=== PATIENT | male | born 1955 | race Caucasian/White ===

== ENCOUNTER 2017-09-08 17:49 | Emergency (ER) | payer BC ==
[~2017-09-08] VITALS: Ht 188 cm; Wt 79.5 kg
[~2017-09-08 17:49] MED LIST: ALPR.25 PO; ATEN-100 PO; AZIT250T74 PO; CEFU1TAB43 PO; THIA100T PO
[2017-09-08 17:51] VITALS: BP 142/82; PULSE 111; RESP 16; TEMP 97.6; O2SAT 97
[2017-09-08 18:18] LABS: AUTOMATED NEUTROPHIL # 9.2 TH/MM3 (1.8-7.7); BASOPHIL # 0.1 TH/MM3 (0-0.2); BASOPHIL % 0.6 % (0.0-2.0); EOSINOPHIL # 0.1 TH/MM3 (0-0.4); EOSINOPHIL % 1.2 % (0.0-4.0); HEMATOCRIT 37.7 % (39.0-51.0); LYMPH % 11.4 % (9.0-44.0); LYMPHOCYTE # 1.4 TH/MM3 (1.0-4.8); MEAN CORPUSCULAR HEMOGLOBIN 33.5 PG (27.0-34.0); MEAN CORPUSCULAR HGB CONC 34.5 % (32.0-36.0); MONO % 11.3 % (0.0-8.0); MONOCYTE # 1.4 TH/MM3 (0-0.9); NEUT % 75.5 % (16.0-70.0); PLATELET COUNT 336 TH/MM3 (150-450); RED BLOOD COUNT 3.89 MIL/MM3 (4.50-5.90); RED CELL DISTRIBUTION WIDTH 16.8 % (11.6-17.2); WHITE BLOOD COUNT 12.2 TH/MM3 (4.0-11.0)
[2017-09-08 18:24] LABS: INTERNATIONAL NORMALIZED RATIO 1.1 RATIO; PROTHROMBIN TIME - PATIENT 10.8 SEC (9.8-11.6)
[2017-09-08 18:31] LABS: BICARBONATE 28.1 MEQ/L (21.0-32.0); BLOOD UREA NITROGEN 10 MG/DL (7-18); CALCIUM 8.9 MG/DL (8.5-10.1); CHLORIDE 100 MEQ/L (98-107); CREATININE 0.67 MG/DL (0.60-1.30); GLOMERULAR FILTRATION RATE 120 ML/MIN (>89); GLUCOSE,RANDOM 95 MG/DL (74-106); MAGNESIUM 1.6 MG/DL (1.5-2.5); SODIUM (NA) 133 MEQ/L (136-145)
[2017-09-08 18:35] LABS: TROPONIN I LESS THAN 0.02 NG/ML (0.02-0.05)
--- NOTE | 2017-09-08 19:23 | RADRPT ---
EXAM DATE/TIME: 09/08/2017 18:20 [facility] COMPARISON: No previous studies available for comparison. INDICATIONS : Chest pain and shortness of breath. MEDICAL HISTORY : Aortic aneurysm. SURGICAL HISTORY : None. ENCOUNTER: Initial ACUITY: 2 days PAIN SCORE: 3/10 LOCATION: Left chest FINDINGS: PA and lateral views of the chest demonstrate the lungs to be symmetrically aerated without evidence of mass, infiltrate or effusion. The cardiomediastinal contours are unremarkable. Mild degenerative changes in the thoracic spine. CONCLUSION: The lungs are clear. Oral Mack MD on September 08, 2017 at 19:21 Board Certified Radiologist. This report was verified electronically.
--- NOTE | 2017-09-08 21:37 | PD ---
HPI Chief Complaint: Chest Pain Time Seen by Provider: 20:10 Travel History International Travel<30 days: No Contact w/Intl Traveler<30days: No Traveled to known affect area: No History of Present Illness HPI This is a 62-year-old male with a history of thoracic aneurysm, presents here today with complaints of left shoulder and arm pain. Patient also reports pain radiates across his upper anterior chest. The patient reports it as a pulling type of pain. He reports it hurts when he moves his arm. He reports it hurts when he touches his upper back and shoulder. He states he woke up with it at 5: 30 this morning. He states that he was sleeping on his left shoulder/side. The patient states he called his primary doctor who told him to come to the hospital for evaluation. The patient denies any dizziness. He denies any shortness of breath. There is no other complaints time my examination. It is important noted patient is adamant about leaving. I informed him that we would need to complete the workup. He is status several times and he does not wish to be admitted. [facility]LY [facility] Past Medical History Anxiety: Yes Cardiovascular Problems: Yes (aneurysm) Diminished Hearing: No Genitourinary: No Hypertension: Yes Musculoskeletal: No Neurologic: Yes Respiratory: No Past Surgical History Genitourinary Surgery: Yes (inginal hernia repair) Social History Alcohol Use: Yes (2 beers/fam indicates more) Tobacco Use: Yes (1ppk) Allergies-Medications (Allergen,Severity, Reaction): Coded Allergies: chloral hydrate (Unverified Allergy, Unknown, 05/06/17) Reported Meds & Prescriptions Reported Meds & Active Scripts Active Flexeril (Cyclobenzaprine HCl) 5 Mg Tab 5 Mg PO TID Arthrotec 50 (Diclofenac-Misoprostol) 50-0.2 Mg Tab 1 Tab PO TID Zithromax (Azithromycin) 250 Mg Tab 250 Mg PO DAILY Ceftin 500 Mg Tab (Cefuroxime Axetil) 500 Mg Tab 500 Mg PO BID Thiamine HCl 100 Mg Tab 100 Mg PO DAILY Reported Xanax 0.25 Mg (Alprazolam) 0.25 Mg Tab 0.25 Mg PO BID Atenolol 25 Mg Tab Unknown Dose PO DAILY Review of Systems Except as stated in HPI: all other systems reviewed are Neg General / Constitutional: No: Fever, Chills HENT: Positive: Neck Pain (pain on the left lateral neck and shoulder), No: Headaches, Lightheadedness Cardiovascular: Positive: Chest Pain or Discomfort (from the arm and left posterior back to the shoulder.), No: Palpitations Respiratory: No: Cough, Shortness of Breath Gastrointestinal: No: Nausea, Vomiting, Abdominal Pain Musculoskeletal: Positive: Limited ROM (secondary to pain), Pain (left arm and posterior back/shoulder), No: Weakness Neurologic: No: Weakness, Dizziness, Headache, Sensory Disturbance Physical Exam Narrative GENERAL: Well blood well-nourished male, in no acute respiratory distress. SKIN: Focused skin assessment warm/dry. HEAD: Atraumatic. Normocephalic. EYES: No scleral icterus. No injection or drainage. ENT: No nasal bleeding or discharge. Mucous membranes pink and moist. NECK: Trachea midline. Supple. CARDIOVASCULAR: Regular rate and rhythm. No murmur appreciated. RESPIRATORY: No accessory muscle use. Clear to auscultation. Breath sounds equal bilaterally. GASTROINTESTINAL: Abdomen soft, non-tender, nondistended. Hepatic and splenic margins not palpable. MUSCULOSKELETAL: No obvious deformities. No clubbing. No cyanosis. No edema. On examination patient's area is left upper extremity he has point tenderness in his left deltoid and left trapezius muscle. It is point tender and he reports this is the pain that he's feeling. It is also reproducible in his left upper chest muscle wall. NEUROLOGICAL: Awake and alert. No obvious cranial nerve deficits. Motor grossly within normal limits. Normal speech. Data Data Last Documented VS Vital Signs Date Time Temp Pulse Resp B/P (MAP) Pulse Ox O2 Delivery O2 Flow Rate FiO2 09/08/17 17:51 97.6 111 16 142/82 (102) 97 Orders Orders Electrocardiogram (09/08/17 18:00) Basic Metabolic Panel (Bmp) (09/08/17 18:00) Ckmb (Isoenzyme) Profile (09/08/17 18:00) Complete Blood Count With Diff (09/08/17 18:00) Magnesium (Mg) (09/08/17 18:00) Prothrombin Time / Inr (Pt) (09/08/17 18:00) Act Partial Throm Time (Ptt) (09/08/17 18:00) Troponin I (09/08/17 18:00) Chest, Pa & Lat (09/08/17 ) Cta Thor Abd Aorta W Iv C W3d (09/08/17 ) Labs Laboratory Tests Test 09/08/17 18:05 White Blood Count 12.2 TH/MM3 Red Blood Count 3.89 MIL/MM3 Hemoglobin 13.0 GM/DL Hematocrit 37.7 % Mean Corpuscular Volume 97.0 FL Mean Corpuscular Hemoglobin 33.5 PG Mean Corpuscular Hemoglobin Concent 34.5 % Red Cell Distribution Width 16.8 % Platelet Count 336 TH/MM3 Mean Platelet Volume 7.0 FL Neutrophils (%) (Auto) 75.5 % Lymphocytes (%) (Auto) 11.4 % Monocytes (%) (Auto) 11.3 % Eosinophils (%) (Auto) 1.2 % Basophils (%) (Auto) 0.6 % Neutrophils # (Auto) 9.2 TH/MM3 Lymphocytes # (Auto) 1.4 TH/MM3 Monocytes # (Auto) 1.4 TH/MM3 Eosinophils # (Auto) 0.1 TH/MM3 Basophils # (Auto) 0.1 TH/MM3 CBC Comment DIFF FINAL Differential Comment Prothrombin Time 10.8 SEC Prothromb Time International Ratio 1.1 RATIO Activated Partial Thromboplast Time 28.9 SEC Blood Urea Nitrogen 10 MG/DL Creatinine 0.67 MG/DL Random Glucose 95 MG/DL Calcium Level 8.9 MG/DL Magnesium Level 1.6 MG/DL Sodium Level 133 MEQ/L Potassium Level 4.0 MEQ/L Chloride Level 100 MEQ/L Carbon Dioxide Level 28.1 MEQ/L Anion Gap 5 MEQ/L Estimat Glomerular Filtration Rate 120 ML/MIN Total Creatine Kinase 40 U/L Troponin I LESS THAN 0.02 NG/ML MDM Medical Decision Making Medical Screen Exam Complete: Yes Emergency Medical Condition: Yes Differential Diagnosis Musca skeletal pain versus ACS versus leaking thoracic aorta Narrative Course 62-year-old gentleman with history of thoracic aortic aneurysm, presents today with complaints of left sided upper back pain with radiation to his right shoulder and upper left chest. The patient called his primary physician who told him to come to the ER for evaluation. The patient has producible pain. It involves his shoulder and upper back muscles. There is also left lateral upper pectoralis muscle involvement. The patient states he was leaning on his shoulder when he woke up this morning with the pain is reproducible with movement and touch. EKG shows no evidence of acute ST elevation or depression. Cardiac enzymes are negative. Chest x-ray shows no evidence of acute process. CT scan of the thoracic aorta shows no evidence of dissection. There is a 4.7 cm aneurysm without evidence of dissection. I have offered the patient admission to the chest pain center. The patient is adamant that he does not wish to be admitted to the hospital. We discussed the risk benefits of being admitted. He states he does not feel this is his heart and does not wish to be admitted to the hospital. Given his reproducible pain, negative cardiac enzymes, and no evidence of dissection on thoracic aorta, I'm comfortable discharging him with muscle relaxer and pain medication. He is instructed to follow up with his primary care physician tomorrow. Diagnosis Primary Impression: Atypical chest pain Additional Impressions: Thoracic aortic aneurysm left upper back musculoskeletal pain Additional Instructions: Follow up with your primary care physician. Call tomorrow for an appointment. Med/Other Pt SpecificInfo: Prescription(s) given Scripts Cyclobenzaprine (Flexeril) 5 Mg Tab 5 MG PO TID for Muscle Spasm, #15 TAB 0 Refills Prov: Armand Smith MD 09/08/17 Diclofenac-Misoprostol (Arthrotec 50) 50-0.2 Mg Tab 1 TAB PO TID for Pain Management, #15 TAB 0 Refills Prov: Armand Smith MD 09/08/17 Disposition: 01 DISCHARGE HOME Condition: Stable Armand Smith MD Sep 08, 2017 21:37
[2017-09-08] MEDS ORDERED: IOHEXOL 350 MG/ML 10 ML VIAL (for RAD DIAG) IVCONTRAST ONE (22:30)
--- NOTE | 2017-09-08 23:38 | RADRPT ---
EXAM DATE/TIME: 09/08/2017 22:43 [facility] COMPARISON: No previous studies available for comparison. INDICATIONS : Back pain. IV CONTRAST: 100 cc Omnipaque 350 (iohexol) IV RADIATION DOSE: 7.0 CTDIvol (mGy) MEDICAL HISTORY : Hypertension. Cardiovascular disease SURGICAL HISTORY : None. ENCOUNTER: Initial ACUITY: 1 day PAIN SCALE: 8/10 LOCATION: Bilateral chest TECHNIQUE: Volumetric scanning was performed using a multi-row detector CT scanner. The data was post processed with a variety of visualization algorithms including full volume maximum intensity projection, multi -planar sliding thin slab reformation, curved planar reformation, and surface rendering techniques. Using automated exposure control and adjustment of the mA and/or kV according to patient size, radiat ion dose was kept as low as reasonably achievable to obtain optimal diagnostic quality images. DICOM format image data is available electronically for review and comparison. FINDINGS: LUNGS: There is mild emphysematous change in the upper lungs. There is minimal suspected atelectasis at the left base. MEDIASTINUM: No abnormally enlarged lymph nodes by CT criteria. No axillary or hilar abnormalities are identified. ABDOMEN: The liver and spleen are free of focal defects. The gallbladder and pancreas demonstrate no abnormali ty. The adrenal glands are normal. The kidneys demonstrate no evidence of solid renal mass or hydrone phrosis. No free fluid or abdominal masses are identified. No para-aortic adenopathy is seen. There i s degenerative change in the lumbar spine. PELVIS: No evidence of free fluid or pelvic mass. No abnormally enlarged inguinal or retroperitoneal lymph no gustavo are present. The bladder is unremarkable. THORACIC AORTA: There is aneurysmal dilatation of the ascending thoracic aorta measuring 4.7 cm. There are mild calci fications of the aorta. ABDOMINAL AORTA: The aorta is normal in caliber without aneurysm or dissection. The renal arteries are patent bilater ally. The proximal celiac and superior mesenteric arteries are patent and normal in diameter. Mild a therosclerotic calcifications are seen. PELVIC VESSELS: The internal iliac and external iliac vessels are patent without aneurysm or stenosis. There is a mil d focal stenosis at the proximal right external iliac artery. CONCLUSION: 1. No dissection is seen. 2. Aneurysmal dilatation of the ascending thoracic aorta measuring 4.7 cm. 3. Emphysematous change in the upper lungs. 4. Degenerative change in the spine. Rupert Chaudhry MD on September 08, 2017 at 23:30 Board Certified Radiologist. This report was verified electronically.
[2017-09-08] MEDS ORDERED: ARTHTAB2 PO (23:49)
[2017-09-08] MEDS ORDERED: CYCL5TAB PO (23:49)
--- NOTE | 2017-09-09 12:41 | EKG ---
Date Performed: 09/08/2017 Time Performed: 18:05:33 PTAGE: 62 years EKG: Sinus rhythm POSSIBLE LEFT ATRIAL ENLARGEMENT POSSIBLE RIGHT VENTRICULAR CONDUCTION DELAY POSSIBLE LEFT VENTRICUL AR HYPERTROPHY ABNORMAL ECG PREVIOUS TRACING : 11/13/1994 09.53 Since previous tracing, no significant change noted DOCTOR: Milan Link Interpretating Date/Time 09/09/2017 12:40:02
== END 2017-09-09 00:05 | disposition home or self-care (01) ==
LOC: NEPE 17:49
DX: R07.89 Other chest pain (principal); M79.1 Myalgia; M25.512 Pain in left shoulder; I71.2 Thoracic aortic aneurysm, without rupture; I10 Essential (primary) hypertension; F17.200 Nicotine dependence, unspecified, uncomplicated
CPT/HCPCS: 71020; 71275; 74174; 80048; 82550; 83735; 84484; 85025; 85610; 85730; 93005; 99285; Q9967

== ENCOUNTER 2018-05-09 00:14 | Inpatient (IN) ==
--- NOTE | 2018-05-09 00:57 | ED ---
HPI General Chief complaint: Psychiatric Symptoms Stated complaint: psych eval Time Seen by Provider: 05/09/18 00:42 Limitations: altered mental status History of Present Illness HPI narrative: Patient presents to the emergency department for altered mental status. He is a patient at [facility] alcohol abuse and was found disoriented, not knowing where he was. Unable to get history from patient secondary to altered mental status. Patient has been placed under Philip act prior to ER arrival. Related Data Home Medications Medication Instructions Recorded Confirmed clonidine 05/09/18 Allergies Allergy/AdvReac Type Severity Reaction Status Date / Time chloral hydrate Allergy Unknown Unverified 05/06/17 15:15 Review of Systems ROS Unobtainable ROS Unobtainable: unobtainable due to mental status [facility] Medical History Medical History HTN (hypertension) (Acute) Hepatitis C (Acute) Social History Social History Second Hand Smoke Exposure: Yes Smoking Status: Current every day smoker Tobacco Type: Cigarettes How Often Do You Have a Drink Containing Alcohol: 4 or more times a week Recent Travel in [facility] within the Last 8 Weeks: No Recent Out of Country Travel within the Last 8 Weeks: No Substance Abuse Detail Marijuana: Substance Use Status: Active Route Used Substance Abuse: Inhalation Reason for Use: Feels Good Immunization History Tetanus Immunization: Unsure Hx Influenza Vaccine This Season: No Exam Narrative Exam Narrative: GENERAL: No acute distress. SKIN: Focused skin assessment warm/dry. HEAD: Atraumatic. Normocephalic. EYES: Pupils equal and round. No scleral icterus. No injection or drainage. ENT: No nasal bleeding or discharge. Mucous membranes pink and moist. NECK: Trachea midline. No JVD. CARDIOVASCULAR: Regular rate and rhythm. No murmur appreciated. RESPIRATORY: No accessory muscle use. Clear to auscultation. Breath sounds equal bilaterally. GASTROINTESTINAL: Abdomen soft, non-tender, nondistended. Hepatic and splenic margins not palpable. MUSCULOSKELETAL: No obvious deformities. No clubbing. No cyanosis. No edema. NEUROLOGICAL: Awake and alert. No obvious cranial nerve deficits. Motor grossly within normal limits. Normal speech. PSYCHIATRIC: Altered. In restraints. Course Initial Documented Vital Signs Temperature 99 F 05/09/18 00:25 Pulse Rate 95 H 05/09/18 00:25 Respiratory Rate 18 05/09/18 00:25 Blood Pressure 168/81 H 05/09/18 00:25 Pulse Oximetry 99 05/09/18 00:25 Last Documented Vital Signs Temperature 99 F 05/09/18 00:25 Pulse Rate 95 H 05/09/18 00:25 Respiratory Rate 18 05/09/18 00:25 Blood Pressure 168/81 H 05/09/18 00:25 Pulse Oximetry 99 05/09/18 00:25 Critical Care Time Critical Care Time: Yes Total Critical Care Time: 30 Attestation: Aggregate critical care time was 30 minutes. Time to perform other separately billable procedures was not included in the critical care time. My time did not include minutes spent treating any other patients simultaneously or on activities that did not directly contribute to the patient's treatment. The services I provided to this patient were to treat and/or prevent clinically significant deterioration that could result in: , increased morbidity I provided critical care services requiring my management, as noted below: Chart data review, documentation time, medication orders and management, vital sign assessments/reviewing monitor data, ordering and reviewing lab tests, ordering and interpreting/reviewing x-rays and diagnostic studies, care of the patient and discussion of the patient with the admitting physicians. Medical Decision Making MDM Narrative Medical decision making narrative: Patient presents to the emergency department altered mental status. Patient placed on cementer oil well, continuous pulse ox, IV access obtained. Head CT, chest x-ray, EKG, labs and psych screen ordered. Patient given 1mg IV ativan for DTs. Head CT and CXR-negative Labs: low calcium, elevated craetinine, low PLT, decrease hgb/hct, elevated ck, glc, creatinine, BUN, AST. Given 1gram IV calcium, 2 grams IV magnesium, 1L IV NS. Medical Screen Exam Complete: Yes Emergency Medical Condition: Yes Differential Diagnosis Differential Diagnosis: Alcohol/drug intoxication, DTs, infection Lab Data Result diagrams: 05/09/18 01:07 05/09/18 01:07 Lab Results 05/09/18 05/09/18 05/09/18 Range/Units 01:07 01:07 01:07 WBC 7.7 (4.0-11.0) th/mm3 RBC 3.43 L (4.50-5.90) mil/mm3 Hgb 11.4 L (13.0-17.0) gm/dL Hct 32.9 L (39.0-51.0) % MCV 96.0 (80.0-100.0) fL MCH 33.2 (27.0-34.0) pg MCHC 34.6 (32.0-36.0) % RDW 15.0 (11.6-17.2) % Plt Count 70 L (150-450) th/mm3 MPV 9.8 (7.0-11.0) fL Prelim Diff (Auto) Slide review pending Neut % (Auto) 71.5 H (16.0-70.0) % Lymph % (Auto) 11.4 (9.0-44.0) % [place] % (Auto) 16.0 H (0.0-8.0) % Eos % (Auto) 0.8 (0.0-4.0) % Baso % (Auto) 0.3 (0.0-2.0) % Neut # (Auto) 5.5 (1.8-7.7) th/mm3 Lymph # (Auto) 0.9 L (1.0-4.8) th/mm3 [place] # (Auto) 1.2 H (0.0-0.9) th/mm3 Eos # (Auto) 0.1 (0.0-0.4) th/mm3 Baso # (Auto) 0.0 (0.0-0.2) th/mm3 Differential Comment . PT 10.9 (9.8-11.6) sec INR 1.1 Ratio APTT 28.3 (24.3-30.1) sec Sodium 136 (136-145) meq/L Potassium 3.8 (3.5-5.1) meq/L Chloride 100 (98-107) meq/L Carbon Dioxide 29.7 (21.0-32.0) meq/L Anion Gap 6 (5-15) meq/L BUN 35 H (7-18) mg/dL Creatinine 1.56 H (0.60-1.30) mg/dL Estimated GFR 45 L (>89) mL/min Random Glucose 121 H (74-106) mg/dL Calcium 6.8 L* (8.5-10.1) mg/dL Prot Corrected Calcium 7.1 L* (8.5-10.1) mg/dL Total Bilirubin 0.5 (0.2-1.0) mg/dL AST 53 H (15-37) U/L ALT 28 (12-78) U/L Alkaline Phosphatase 66 (45-117) U/L Ammonia (11-32) mcmol/L Total Creatine Kinase 571 H (39-308) U/L CK-MB (CK-2) 7.4 H (0.5-3.6) ng/mL CK-MB (CK-2) % 1.3 (0.0-4.0) % Troponin I Less than 0.02 L (0.02-0.05) ng/mL Total Protein 6.5 (6.4-8.2) g/dL Albumin 2.9 L (3.4-5.0) g/dL TSH 1.390 (0.358-3.740) uIU/mL Free T4 0.82 (0.76-1.46) ng/dL Salicylates (2.8-20.0) mg/dL Acetaminophen Less than 2.0 L (10.0-30.0) mcg/mL Serum Alcohol Less than 3 (0-5) mg/dL 05/09/18 05/09/18 Range/Units 01:07 01:07 WBC (4.0-11.0) th/mm3 RBC (4.50-5.90) mil/mm3 Hgb (13.0-17.0) gm/dL Hct (39.0-51.0) % MCV (80.0-100.0) fL MCH (27.0-34.0) pg MCHC (32.0-36.0) % RDW (11.6-17.2) % Plt Count (150-450) th/mm3 MPV (7.0-11.0) fL Prelim Diff (Auto) Neut % (Auto) (16.0-70.0) % Lymph % (Auto) (9.0-44.0) % [place] % (Auto) (0.0-8.0) % Eos % (Auto) (0.0-4.0) % Baso % (Auto) (0.0-2.0) % Neut # (Auto) (1.8-7.7) th/mm3 Lymph # (Auto) (1.0-4.8) th/mm3 [place] # (Auto) (0.0-0.9) th/mm3 Eos # (Auto) (0.0-0.4) th/mm3 Baso # (Auto) (0.0-0.2) th/mm3 Differential Comment PT (9.8-11.6) sec INR Ratio APTT (24.3-30.1) sec Sodium (136-145) meq/L Potassium (3.5-5.1) meq/L Chloride (98-107) meq/L Carbon Dioxide (21.0-32.0) meq/L Anion Gap (5-15) meq/L BUN (7-18) mg/dL Creatinine (0.60-1.30) mg/dL Estimated GFR (>89) mL/min Random Glucose (74-106) mg/dL Calcium (8.5-10.1) mg/dL Prot Corrected Calcium (8.5-10.1) mg/dL Total Bilirubin (0.2-1.0) mg/dL AST (15-37) U/L ALT (12-78) U/L Alkaline Phosphatase (45-117) U/L Ammonia 18 (11-32) mcmol/L Total Creatine Kinase (39-308) U/L CK-MB (CK-2) (0.5-3.6) ng/mL CK-MB (CK-2) % (0.0-4.0) % Troponin I (0.02-0.05) ng/mL Total Protein (6.4-8.2) g/dL Albumin (3.4-5.0) g/dL TSH (0.358-3.740) uIU/mL Free T4 (0.76-1.46) ng/dL Salicylates 6.2 (2.8-20.0) mg/dL Acetaminophen (10.0-30.0) mcg/mL Serum Alcohol (0-5) mg/dL Imaging Data Radiologist's impression: Chest X-Ray 05/09/18 00:50 CONCLUSION: No acute abnormality is seen. Head CT 05/09/18 00:50 CONCLUSION: 1. No acute abnormality is seen. 2. Atrophy. . ECG Data Attestation: I personally reviewed and interpreted this ECG as follows: (SR, rate 90, QTc 434, LAE, TWI in V2) Discharge Plan Discharge Disposition Patient Disposition: 30 Still Patient Discharge Condition Condition: Stable Discharge Details Diagnosis: Alcohol withdrawal, Hypocalcemia Physicians Team ED Provider: Ayaka Perez Primary Care Provider: UNKNOWN, Rxs /Orders / Referrals /Forms Prescriptions: No Action clonidine RF: 0 Status ED Status: Admitted Patient
--- NOTE | 2018-05-09 01:27 | XR ---
EXAM DATE: 05/09/2018 1:23 AM EDT AGE/SEX: 63 years / Male INDICATIONS: Chest pain. CLINICAL DATA: This is the patient's initial encounter. Patient reports that signs and symptoms have been present for 1 day and indicates a pain score of 4/10. MEDICAL/SURGICAL HISTORY: None. None. COMPARISON: No prior exams available for comparison. FINDINGS: A single AP view of the chest demonstrates the lungs to be symmetrically aerated without evidence of mass, infiltrate or effusion. The cardiomediastinal contours are unremarkable. There is degenerative change in the thoracic spine. CONCLUSION: No acute abnormality is seen. Electronically signed by: Rupert Chaudhry MD 05/09/2018 1:26 AM EDT
[2018-05-09 01:43] LABS: Baso % (Auto) 0.3 % (0.0-2.0); Eos # (Auto) 0.1 th/mm3 (0.0-0.4); Eos % (Auto) 0.8 % (0.0-4.0); Hematocrit 32.9 % (39.0-51.0); Hemoglobin 11.4 gm/dL (13.0-17.0); Lymph # (Auto) 0.9 th/mm3 (1.0-4.8); Lymph % (Auto) 11.4 % (9.0-44.0); Mean Corpuscular HGB Conc 34.6 % (32.0-36.0); Mean Corpuscular Hemoglobin 33.2 pg (27.0-34.0); Mean Platelet Volume 9.8 fL (7.0-11.0); Mono # (Auto) 1.2 th/mm3 (0.0-0.9); Neut # (Auto) 5.5 th/mm3 (1.8-7.7); Neut % (Auto) 71.5 % (16.0-70.0); Platelet Count 70 th/mm3 (150-450); Red Blood Count 3.43 mil/mm3 (4.50-5.90); White Blood Count 7.7 th/mm3 (4.0-11.0)
[2018-05-09 01:58] LABS: Activated Partial Thrombo Time 28.3 sec (24.3-30.1); INR 1.1 Ratio; Prothrombin Time 10.9 sec (9.8-11.6)
[2018-05-09 02:09] LABS: Alanine Aminotransferase 28 U/L (12-78); Albumin 2.9 g/dL (3.4-5.0); Alkaline Phosphatase 66 U/L (45-117); Anion Gap 6 meq/L (5-15); Aspartate Aminotransferase 53 U/L (15-37); Blood Urea Nitrogen 35 mg/dL (7-18); Calcium 6.8 mg/dL (8.5-10.1); Carbon Dioxide 29.7 meq/L (21.0-32.0); Chloride 100 meq/L (98-107); Creatine Kinase 571 U/L (39-308); Free T4 (Free Thyroxine) 0.82 ng/dL (0.76-1.46); Glomerular Filtration Rate 45 mL/min (>89); Glucose,Random 121 mg/dL (74-106); Potassium 3.8 meq/L (3.5-5.1); Sodium 136 meq/L (136-145); Total Protein 6.5 g/dL (6.4-8.2)
[2018-05-09 02:26] LABS: CKMB Percent 1.3 % (0.0-4.0); Creatine Kinase MB 7.4 ng/mL (0.5-3.6)
--- NOTE | 2018-05-09 02:37 | CT ---
EXAM DATE: 05/09/2018 2:31 AM EDT AGE/SEX: 63 years / Male INDICATIONS: Altered mental status; uncooperative. CLINICAL DATA: This is the patient's initial encounter. Patient reports that signs and symptoms have been present for 1 day and indicates a pain score of Nonresponsive. MEDICAL/SURGICAL HISTORY: Non-responsive. Non-responsive. RADIATION DOSE: 56.35 CTDI (mGy) COMPARISON: No prior exams available for comparison. TECHNIQUE: CT of the head without contrast. Using automated exposure control and adjustment of the mA and/or kV according to patient size, radiation dose was kept as low as reasonably achievable to ob tain optimal diagnostic quality images. DICOM format image data is available electronically for revi ew and comparison. FINDINGS: Cerebrum: The ventricles and cortical sulci are widened. No evidence of midline shift, mass lesion, hemorrhage or acute infarction. No extraaxial fluid collections are seen. Posterior Fossa: The cerebellum and brainstem are intact. The 4th ventricle is midline. The cerebe llopontine angle is unremarkable. Extracranial: The visualized portion of the orbits is intact. Skull: The calvaria is intact. No evidence of skull fracture. CONCLUSION: 1. No acute abnormality is seen. 2. Atrophy. . Electronically signed by: Rupert Chaudhry MD 05/09/2018 2:36 AM EDT
[2018-05-09] MEDS ORDERED: Calcium Gluconate Inj 1 GM in Dextrose 5% in Water Inj 100 ML IV.SIG ONE ×2 (02:52)
[2018-05-09] MEDS ORDERED: Magnesium Sulfate Inj 2 GM in Sodium Chlor 0.9% Inj 96 ML IV.SIG ONE (02:52)
[2018-05-09] MEDS ORDERED: Sod Chloride 0.9% Inj 1,000 ML IV.SIG ONE (02:54)
[2018-05-09] MEDS ORDERED: Bisacodyl 10 MG Supp RECTAL PRN (03:10)
[2018-05-09 03:42] LABS: Platelet Morphology Normal (Normal)
[2018-05-09] MEDS ORDERED: Calcium Chloride Inj 0.33 GM in Dextrose 5% in Water Inj 100 ML IV.SIG ONE ×2 (03:45)
--- NOTE | 2018-05-09 04:38 | P.HPIM ---
History of Present Illness Primary Care Physician: UNKNOWN History of Present Illness: This is a 63-year-old male with a PMH of Hepatitis C, HTN and Alcohol Abuse was transferred from [facility] for [facility]. Unable to obtain any history from patient due to mental status. On arrival, patient significantly combative requiring restraints, in obvious withdrawal. BP 168/81, HR 95, O2 sat 99% on RA , Temp 99. WBC normal. Platelets 70, previously 336 on 09/08/2017. INR 1.1. Creatinine 1.56, previously 0.67 on 09/08/2017. Calcium 6.8. CPK 571. Troponin negative. Tylenol negative, alcohol negative. CT Head with no acute findings. CXR normal. - Diagnosis (1) Alcohol withdrawal (2) NIKUNJ (acute kidney injury) (3) Hypocalcemia Inpatient Certification: I certify that the inpatient services were ordered in accordance with Medicare regulations governing the order. This includes certification that hospital inpatient services are reasonable and necessary and in the case of services not specified as inpatient-only under 42 CFR 419.22(n), that they are appropriately provided as inpatient services in accordance to with the 2-midnight benchmark under 43 CFR 412.3(e) Estimated Total Length of Stay (Days): 2 Plans for Post Hospital Care: Not yet determined Review of Systems PAST FAMILY HISTORY: Unable to obtain unobtainable due to mental status PMFSH - History History Provided By: Patient - Medical History Medical History: Medical History (Last Updated 05/09/18 @ 00:30 by Antonio Crowder) HTN (hypertension) Hepatitis C - Tobacco History Second Hand Smoke Exposure: Yes Tobacco Use In Past 30 Days: Yes Smoking Status: Current every day smoker Tobacco Type: Cigarettes - Alcohol History How Often Do You Have a Drink Containing Alcohol: 4 or more times a week - Substance Use Type Marijuana Status: Active Route Used: Inhalation Reason for Use: Feels Good - Travel History Recent Travel in the USA Within the Last 8 Weeks: No Recent Travel Out of the Country Within the Last 8 Weeks: No - Immunization History Tetanus Immunization: Unsure Hx Influenza Vaccine This Season: No Medications and Allergies Active Medications: Active Medications Al Hydroxide/Mg Hydroxide (Milk Of Magnesia Liq) 30 ml PO Q12H PRN PRN Reason: Mild Constipation Bisacodyl (Dulcolax Supp) 10 mg RECTAL DAILY PRN PRN Reason: SEVERE CONSITIPATION Clonidine HCl (Catapres) 0.1 mg PO Q8HR SUSAN Flumazenil (Romazecon Inj) 0.2 mg IV.PUSH Q1M PRN PRN Reason: OVERSEDATION Haloperidol Lactate (Haldol Inj) 1 mg IV.PUSH Q15M PRN PRN Reason: for severe agitation Magnesium Sulfate Inj 2 gm/ (Sodium Chloride) 100 mls @ 50 mls/hr IV.SIG ONCE ONE Stop: 05/09/18 04:51 Last Admin: 05/09/18 03:56 Dose: 50 mls/hr Multivitamins 10 ml/ Folic (Acid 1 mg/ Sodium Chloride) 510.2 mls @ 125 mls/hr IV.SIG DAILY SUSAN Stop: 05/14/18 08:59 Sodium Chloride (Ns Inj) 1,000 mls @ 100 mls/hr IV.CONT .Q10H SUSAN Calcium Chloride 0.33 gm/ (Dextrose) 103.3 mls @ 110 mls/hr IV.SIG ONCE ONE Stop: 05/09/18 04:41 Lactulose (Lactulose Liq) 30 ml PO DAILY PRN PRN Reason: SEVERE CONSITIPATION Lorazepam (Ativan) 1 mg PO Q4H PRN PRN Reason: for CIWA 8-10 Lorazepam (Ativan) 2 mg PO Q2H PRN PRN Reason: for CIWA 11-14 Lorazepam (Ativan Inj) 2 mg IV.PUSH Q1H PRN PRN Reason: for CIWA 15-20 Lorazepam (Ativan Inj) 2 mg IV.PUSH Q15M PRN PRN Reason: for CIWA > 20 Lorazepam (Ativan Inj) 1 mg IV.PUSH Q4H PRN PRN Reason: for CIWA 8-10 Lorazepam (Ativan Inj) 2 mg IV.PUSH Q2H PRN PRN Reason: for CIWA 11-14 Ondansetron HCl (Zofran Inj) 4 mg IV.PUSH Q6H PRN PRN Reason: NAUSEA OR VOMITING Senna/Docusate Sodium (Kaitlynn-Colace) 1 tab PO BID [facility] Sennosides (Senokot) 17.2 mg PO Q12H PRN PRN Reason: Moderate Constipation Thiamine HCl (Vitamin B1) 100 mg PO DAILY [facility] Allergies Allergy/AdvReac Type Severity Reaction Status Date / Time chloral hydrate Allergy Unknown Unverified 05/06/17 15:15 Home Medications Medication Instructions Recorded Confirmed Type clonidine 05/09/18 History Exam Vital signs: Vital Signs 05/09/18 00:25 Temperature 99 F Pulse Rate 95 H Respiratory Rate 18 Blood Pressure 168/81 H Pulse Oximetry 99 Intake & Output 05/08/18 05/08/18 05/09/18 06:59 18:59 06:59 Weight 90.718 kg Narrative: PE: GENERAL: Middle-aged white male tremulous, agitated, in restraints, talking to himself HEENT: PERRLA, EOMI. No scleral icterus or conjunctival pallor. No lid lag or facial droop. CARDIOVASCULAR: Regular rate and rhythm. No obvious murmurs to auscultation. No chest tenderness to palpation. RESPIRATORY: No obvious rhonchi or wheezing. Clear to auscultation. Breath sounds equal bilaterally. GASTROINTESTINAL: Abdomen soft, non-tender, nondistended. BS normal. MUSCULOSKELETAL: Extremities without clubbing, cyanosis, or edema. No obvious deformities. NEUROLOGICAL: Awake, agitated, not following commands. No focal neurologic deficits. Moving both upper and lower extremities spontaneously. Results - Labs CBC & Chem 7: 05/09/18 01:07 05/09/18 01:07 Labs: Short CBC 05/09/18 Range/Units 01:07 WBC 7.7 (4.0-11.0) th/mm3 Hgb 11.4 L (13.0-17.0) gm/dL Hct 32.9 L (39.0-51.0) % Plt Count 70 L (150-450) th/mm3 BMP 05/09/18 01:07 Sodium 136 Potassium 3.8 Chloride 100 Carbon Dioxide 29.7 BUN 35 H Creatinine 1.56 H Calcium 6.8 L* Cardiac Enzymes 05/09/18 Range/Units 01:07 Total Creatine Kinase 571 H (39-308) U/L CK-MB (CK-2) 7.4 H (0.5-3.6) ng/mL Troponin I Less than 0.02 L (0.02-0.05) ng/mL Liver Function 05/09/18 Range/Units 01:07 Total Bilirubin 0.5 (0.2-1.0) mg/dL AST 53 H (15-37) U/L ALT 28 (12-78) U/L Alkaline Phosphatase 66 (45-117) U/L Albumin 2.9 L (3.4-5.0) g/dL - Imaging Impressions Chest X-Ray 05/09/18 00:50 CONCLUSION: No acute abnormality is seen. Head CT 05/09/18 00:50 CONCLUSION: 1. No acute abnormality is seen. 2. Atrophy. . Caprini VTE Risk Assessment Caprini VTE Risk Assessment: No/Low Risk (score <= 1) Caprini Risk Assessment Model: Point Value = 1 Point Value = 2 Point Value = 3 Point Value = 5 Age 41-60 Minor surgery BMI > 25 kg/m2 Swollen legs Varicose veins or History of unexplained or recurrent spontaneous Oral contraceptives or hormone replacement Sepsis (< 1 month) Serious lung disease, including pneumonia (< 1 month) Abnormal pulmonary function Acute myocardial infarction Congestive heart failure (< 1 month) History of inflammatory bowel disease Medical patient at bed rest Age 61-74 Arthroscopic surgery Major open surgery (> 45 min) Laparoscopic surgery (> 45 min) Malignancy Confined to bed (> 72 hours) Immobilizing plaster cast Central venous access Age >= 75 History of VTE Family history of VTE Factor V Leiden Prothrombin [id number] Lupus anticoagulant Anticardiolipin antibodies Elevated serum homocysteine Heparin-induced thrombocytopenia Other congenital or acquired thrombophilia Stroke (< 1 month) Elective arthroplasty Hip, pelvis, or leg fracture Acute spinal cord injury (< 1 month) Prophylaxis Regimen: Total Risk Factor Score Risk Level Prophylaxis Regimen 0-1 Low Early ambulation 2 Moderate Order ONE of the following: *Sequential Compression Device (SCD) *Heparin 5000 units SQ BID 3-4 Higher Order ONE of the following medications: *Heparin 5000 units SQ TID *Enoxaparin/Lovenox 40 mg SQ daily (WT < 150 kg, CrCl > 30 mL/min) *Enoxaparin/Lovenox 30 mg SQ daily (WT < 150 kg, CrCl > 10-29 mL/min) *Enoxaparin/Lovenox 30 mg SQ BID (WT < 150 kg, CrCl > 30 mL/min) AND/OR *Sequential Compression Device (SCD) 5 or more Highest Order ONE of the following medications: *Heparin 5000 units SQ TID (Preferred with Epidurals) *Enoxaparin/Lovenox 40 mg SQ daily (WT < 150 kg, CrCl > 30 mL/min) *Enoxaparin/Lovenox 30 mg SQ daily (WT < 150 kg, CrCl > 10-29 mL/min) *Enoxaparin/Lovenox 30 mg SQ BID (WT < 150 kg, CrCl > 30 mL/min) AND *Sequential Compression Device (SCD) Assessment and Plan - Assessment (1) Alcohol withdrawal Code(s): F10.239 - Alcohol dependence with withdrawal, unspecified Status: Acute (2) NIKUNJ (acute kidney injury) Code(s): N17.9 - Acute kidney failure, unspecified Status: Acute (3) Hypocalcemia Code(s): E83.51 - Hypocalcemia Status: Acute - Plan A/P: 1. Alcohol Withdrawal: h/o Alcohol Abuse, tx from [facility] for acute AMS, sent w/ Philip Act, +active withdrawal. Admit to telemetry, CIWA, Seizure Precautions, MVT/Thiamine/Folate replacement, monitor closely for worsening withdrawal. Consult Psych for further eval. 2. Hypocalcemia: Ca 6.8, s/p replacement, will recheck and replace as needed. 3. NIKUNJ: Creatinine 1.56, previously 0.67 on 09/08/17, IVF for hydration, repeat labs in am. Check U/a and UDS. 4. DVT Prophylaxis: SCD/Teds 5. Social work for d/c planning as needed 6. Case discussed w/ ER physician at length, labs/records/imaging reviewed by me. (1) Alcohol withdrawal Qualifiers: Complication of substance-induced condition: with delirium Qualified Code(s) : F10.231 - Alcohol dependence with withdrawal delirium
[2018-05-09 06:11] LABS: Amphetamine Screen,Urine Neg (Neg); Barbiturate Screen,Urine Neg (Neg); Cannabinoid Screen,Urine Neg (Neg); Cocaine Screen,Urine Neg (Neg)
[2018-05-09 06:14] LABS: Opiate Screen,Urine Neg (Neg)
[2018-05-09 06:29] LABS: Amorphous Sediment,Urine Moderate /hpf; Bacteria,Urine Rare /hpf; Bilirubin,Urine Negative (Negative); Clarity,Urine Hazy (Clear); Color,Urine Yellow (Yellw/Straw); Glucose,Urine (UA) Negative (Negative); Hyaline Casts,Urine 3 /lpf (0-3); Leukocyte Esterase,Urine Negative (Negative); Nitrite,Urine Negative (Negative); Specific Gravity,Urine 1.011 (1.002-1.035)
[2018-05-09] MEDS: Sod Chloride 0.9% Inj 1,000 ML IV.CONT SCH ×2 (06:59→15:49)
--- NOTE | 2018-05-09 09:11 | P.CONPSY ---
Provisional Diagnosis Admission Date: May 09, 2018 02:59 [place] I.: Alcoholic delirium History of Present Illness Service: Psychiatry Consult date: 05/09/18 Requesting Physician: Rimma Jerome Reason for Consult: Philip act assessment Primary Care Provider: UNKNOWN Family Provider: UNKNOWN History of Present Illness: Patient is a 63-year-old white male was transferred here under Philip act from [facility]. He be correct dated 05/08/2018 and 11:30 AM that likely reviewed that stating rule out psychotic disorder rule out alcohol use disorder stating patient presents to us oriented does not know where she is patient reported he thought he was at a garage patient reported he was trying to put his clothes on but only blankets patient repeated he did not remember being arrested yesterday patient was asked for the lived and he reported he lived [place] patient is observed to be unable to care for himself this is signed by Zahida Chavez LUNCH COOK it appears the patient was just released from long-term prior for DUI was sent to [facility] and then referred here under the Philip act. Upon review of the EMR there is no past psychiatric history with this gentleman patient was discussed with nurse. Patient is now under the cind protocol. Patient is laying in bed somewhat disheveled white male in soft 4 point restraints he is alert diffusely confused and confabulating is markedly disorganized. Mood was denied suicidality for several versions. When asked about past psychiatric history he remains markedly confused when asked about his alcohol use he says he was a teenager when he started drinking beer. He denies prior detox acknowledges rehab please also come out diffusely confabulating attitude. At this time if patient does not meet Philip criteria for illnesses alcohol-related alcohol delirium with perhaps withdrawal issues. She is about 72 hours out from his last drink. The central left Philip act. I would suggest that the patient is medically stable perhaps a referral back to store more traumatic for further detox and/or rehab. I have no significant suggestions for treatment may be determined by the medical admitting team. At this time I will look to be correct and I will sign off on this patient thank you for the consult Review of Systems Please see med surge assessment PMFSH - History History Provided By: Patient - Medical History Medical History: Medical History (Last Updated 05/09/18 @ 00:30 by Antonio Crowder) HTN (hypertension) Hepatitis C - Tobacco History Second Hand Smoke Exposure: Yes Tobacco Use In Past 30 Days: Yes Smoking Status: Current every day smoker Tobacco Type: Cigarettes - Alcohol History How Often Do You Have a Drink Containing Alcohol: 4 or more times a week - Substance Use Type Marijuana Status: Active Route Used: Inhalation Reason for Use: Feels Good - Travel History Recent Travel in the [place] Within the Last 8 Weeks: No Recent Travel Out of the Country Within the Last 8 Weeks: No - Immunization History Tetanus Immunization: Unsure Hx Influenza Vaccine This Season: No Medications and Allergies Active Medications: Active Medications Al Hydroxide/Mg Hydroxide (Milk Of Magnesia Liq) 30 ml PO Q12H PRN PRN Reason: Mild Constipation Bisacodyl (Dulcolax Supp) 10 mg RECTAL DAILY PRN PRN Reason: SEVERE CONSITIPATION Clonidine HCl (Catapres) 0.1 mg PO Q8HR SUSAN Flumazenil (Romazecon Inj) 0.2 mg IV.PUSH Q1M PRN PRN Reason: OVERSEDATION Haloperidol Lactate (Haldol Inj) 1 mg IV.PUSH Q15M PRN PRN Reason: for severe agitation Multivitamins 10 ml/ Folic (Acid 1 mg/ Sodium Chloride) 510.2 mls @ 125 mls/hr IV.SIG DAILY SUSAN Stop: 05/14/18 08:59 Sodium Chloride (Ns Inj) 1,000 mls @ 100 mls/hr IV.CONT .Q10H SUSAN Last Admin: 05/09/18 06:59 Dose: 100 mls/hr Lactulose (Lactulose Liq) 30 ml PO DAILY PRN PRN Reason: SEVERE CONSITIPATION Lorazepam (Ativan) 1 mg PO Q4H PRN PRN Reason: for CIWA 8-10 Lorazepam (Ativan) 2 mg PO Q2H PRN PRN Reason: for CIWA 11-14 Lorazepam (Ativan Inj) 2 mg IV.PUSH Q1H PRN PRN Reason: for CIWA 15-20 Last Admin: 05/09/18 05:52 Dose: 2 mg Lorazepam (Ativan Inj) 2 mg IV.PUSH Q15M PRN PRN Reason: for CIWA > 20 Lorazepam (Ativan Inj) 1 mg IV.PUSH Q4H PRN PRN Reason: for CIWA 8-10 Last Admin: 05/09/18 08:15 Dose: 1 mg Lorazepam (Ativan Inj) 2 mg IV.PUSH Q2H PRN PRN Reason: for CIWA 11-14 Ondansetron HCl (Zofran Inj) 4 mg IV.PUSH Q6H PRN PRN Reason: NAUSEA OR VOMITING Senna/Docusate Sodium (Kaitlynn-Colace) 1 tab PO BID SUSAN Sennosides (Senokot) 17.2 mg PO Q12H PRN PRN Reason: Moderate Constipation Thiamine HCl (Vitamin B1) 100 mg PO DAILY SUSAN Allergies Allergy/AdvReac Type Severity Reaction Status Date / Time chloral hydrate Allergy Unknown Unverified 05/06/17 15:15 Home Medications Medication Instructions Recorded Confirmed Type clonidine 05/09/18 History Exam Vital signs: Vital Signs 05/09/18 00:25 05/09/18 03:08 05/09/18 05:10 Temperature 99 F Pulse Rate 95 H 97 H 97 H Respiratory Rate 18 20 20 Blood Pressure 168/81 H 139/92 H 139/92 H Pulse Oximetry 99 99 99 05/09/18 08:38 Temperature Pulse Rate 75 Respiratory Rate 20 Blood Pressure 158/77 H Pulse Oximetry 100 Intake & Output 05/08/18 05/09/18 05/09/18 18:59 06:59 18:59 Weight 90.718 kg Narrative: Please see [facility] assessment Mental Status Examination Appearance: Disheveled Consciousness: Alert Motor Activity: Other (Patient in 4 point restraints) Speech: Hesitant, Incoherent Language: Other (Markedly disorganized) Fund of Knowledge: Poor Attention and Concentration: Inadequate Memory: Impaired Mood: Irritable Affect: Other (Slight increased range and intensity) Thought Process & Associations: Loose associations, Disorganized Thought Content: Other (Markedly disorganized) Hallucination Type: None (Denies) Delusion Type: Bizarre Suicidal Ideation: No Suicidal Plan: No Suicidal Intention: No Homicidal Ideation: No Homicidal Plan: No Homicidal Intention: No Insight: Poor Judgment: Poor Assessment and Plan - Assessment (1) Alcoholic delirium Code(s): F10.231 - Alcohol dependence with withdrawal delirium Status: Acute - Plan Plan: Estimated LOS: [] days Patient remains delirious confabulating quite confused. Her feel this is related to his alcohol misuse. Patient does not meet Tamera act criteria with Tamera act. Recommend once he is stabilized contact Mr. Singh act to they be willing to accept him back through detox. Program. Otherwise would just suggest continuing the same course for treatment of delirium of the alcohol- related issues. Thanks for the consult will sign off at the present time Justification for Continued Inpatient Stay: Please see med [facility] assessments Discharge Planning: Per MedSurg assessment
[2018-05-09] MEDS: Haloperidol Inj 5 MG/ML Ampul IV.PUSH PRN ×2 (10:07→19:08)
[2018-05-09] MEDS: Senna/Docusate Sodium 8.6/50 MG Tablet PO SCH ×2 (14:42→22:07)
[2018-05-09] MEDS: Multivitamin Inj 10 ML, Folic Acid Inj 1 MG in Sodium Chlor 0.9% Inj 500 ML IV.SIG SCH (15:16)
--- NOTE | 2018-05-09 19:31 | ECG ---
Date Performed: 05/09/2018 Time Performed: 02:58:26 PTAGE: 63 years EKG: ATRIAL ABNORMALITY SLIGHT RIGHT VENTRICULAR CONDUCTION DELAY. SINCE PREVIOUS TRACING 2016, NO SIGNIFICANT CHANGE. ABNORMAL ECG PREVIOUS TRACING : 09/08/2017 18.05 DOCTOR: Romie Boswell Interpretating Date/Time 05/09/2018 19:29:14
[2018-05-10] MEDS: Haloperidol Inj 5 MG/ML Ampul IV.PUSH PRN ×6 (01:06→21:23)
[2018-05-10] MEDS: Sod Chloride 0.9% Inj 1,000 ML IV.CONT SCH ×2 (02:13→13:14)
[2018-05-10] MEDS ORDERED: Chlorhexidine Gluconate 2% 1 Pack (2 Cloths) TOPICAL PRN (04:00)
[2018-05-10] MEDS: Chlorhexidine Gluconate 2% 1 Pack (2 Cloths) TOPICAL SCH (04:02)
[2018-05-10 04:24] LABS: Baso % (Auto) 0.2 % (0.0-2.0); Eos % (Auto) 0.5 % (0.0-4.0); Hematocrit 35.5 % (39.0-51.0); Hemoglobin 12.2 gm/dL (13.0-17.0); Lymph # (Auto) 0.7 th/mm3 (1.0-4.8); Lymph % (Auto) 8.2 % (9.0-44.0); Mean Corpuscular HGB Conc 34.3 % (32.0-36.0); Mean Corpuscular Hemoglobin 33.4 pg (27.0-34.0); Mean Corpuscular Volume 97.3 fL (80.0-100.0); Mean Platelet Volume 9.6 fL (7.0-11.0); Mono # (Auto) 1.3 th/mm3 (0.0-0.9); Mono % (Auto) 14.1 % (0.0-8.0); Neut # (Auto) 6.9 th/mm3 (1.8-7.7); Platelet Count 91 th/mm3 (150-450); Red Blood Count 3.64 mil/mm3 (4.50-5.90); Red Cell Distribution Width 15.1 % (11.6-17.2)
[2018-05-10 04:41] LABS: Alanine Aminotransferase 28 U/L (12-78); Albumin 2.7 g/dL (3.4-5.0); Alkaline Phosphatase 63 U/L (45-117); Anion Gap 15 meq/L (5-15); Aspartate Aminotransferase 70 U/L (15-37); Blood Urea Nitrogen 15 mg/dL (7-18); Carbon Dioxide 21.1 meq/L (21.0-32.0); Chloride 105 meq/L (98-107); Glomerular Filtration Rate Greater Than 89 mL/min (>89); Glucose,Random 83 mg/dL (74-106); Potassium 3.4 meq/L (3.5-5.1); Sodium 141 meq/L (136-145); Total Protein 6.4 g/dL (6.4-8.2)
[2018-05-10 05:37] LABS: Platelet Morphology Normal (Normal)
--- NOTE | 2018-05-10 08:55 | P.PNIM ---
Subjective Interval history: " I am tired, In [place], somewhere around [address] [place]" Physical Exam Vital signs: Vital Signs 05/09/18 12:30 05/09/18 14:43 05/09/18 18:00 Temperature Pulse Rate 72 62 77 Respiratory Rate 18 Blood Pressure 142/67 H 156/70 H Pulse Oximetry 99 05/09/18 18:12 05/09/18 18:15 05/09/18 18:41 Temperature 98.4 F Pulse Rate 78 77 77 Respiratory Rate 20 22 Blood Pressure 143/65 H 181/79 H Pulse Oximetry 94 L 05/09/18 19:53 05/10/18 00:00 05/10/18 04:00 Temperature 97.9 F 98.7 F 97.6 F Pulse Rate 73 70 78 Respiratory Rate 17 16 19 Blood Pressure 157/97 H 168/88 H 158/78 H Pulse Oximetry 99 97 98 Intake & Output 05/09/18 05/10/18 05/10/18 18:59 06:59 18:59 Intake Total 1949 1510.2 / 1510.2 Balance 1949 1510.2 / 1510.2 Weight 72.5 kg Intake: IV 1000 / 1000 1510.2 / 1510.2 NS Inj 1,000 ML @ 100 mls/hr IV 1000 / 1000 1000 / 1000 .CONT .Q10H SUSAN Rx#:[id number] MVI-12 Inj 10 ML Folvite Inj 1 510.2 / 510.2 MG In NS Inj 500 ML @ 125 mls/ hr IV.SIG DAILY SUSAN Rx#: [id number] Oral 200 / 200 Trauma Intake Amount 750 / 750 Other: # Incontinent Voids 3 # Urine Diapers 3 Narrative: GENERAL: Disheveled male, confused. CARDIOVASCULAR: Normal rate and regular rhythm without murmurs, gallops, or rubs. RESPIRATORY: Breath sounds equal and clear to auscultation bilaterally. GASTROINTESTINAL: Abdomen soft, non-tender, non-distended. Normal active bowel sounds MUSCULOSKELETAL: Extremities without cyanosis, or edema. NEURO: Confused and easily agitated. Moves all ext x4 Results - Labs CBC & Chem 7: 05/10/18 03:31 05/10/18 03:31 Laboratory Results - last 24 hr 05/09/18 05/09/18 05/09/18 12:39 18:10 21:46 WBC RBC Hgb Hct MCV MCH MCHC RDW Plt Count MPV Prelim Diff (Auto) Neut % (Auto) Lymph % (Auto) [place] % (Auto) Eos % (Auto) Baso % (Auto) Neut # (Auto) Lymph # (Auto) [place] # (Auto) Eos # (Auto) Baso # (Auto) WBC Differential Diff Scan Differential Comment Platelet Estimate Platelet Morphology Sodium Potassium Chloride Carbon Dioxide Anion Gap BUN Creatinine Estimated GFR POC Glucose 98 105 Random Glucose Calcium Prot Corrected Calcium Total Bilirubin AST ALT Alkaline Phosphatase Total Protein Albumin Nasal Screen MRSA (PCR) Not detected 05/10/18 05/10/18 03:31 03:31 WBC 9.0 RBC 3.64 L Hgb 12.2 L Hct 35.5 L MCV 97.3 MCH 33.4 MCHC 34.3 RDW 15.1 Plt Count 91 L MPV 9.6 Prelim Diff (Auto) Slide review pending Neut % (Auto) 77.0 H Lymph % (Auto) 8.2 L [place] % (Auto) 14.1 H Eos % (Auto) 0.5 Baso % (Auto) 0.2 Neut # (Auto) 6.9 Lymph # (Auto) 0.7 L [place] # (Auto) 1.3 H Eos # (Auto) 0.0 Baso # (Auto) 0.0 WBC Differential . Diff Scan Auto diff confirmed Differential Comment . Platelet Estimate Low L Platelet Morphology Normal Sodium 141 Potassium 3.4 L Chloride 105 Carbon Dioxide 21.1 Anion Gap 15 BUN 15 Creatinine 0.67 Estimated GFR Greater than 89 POC Glucose Random Glucose 83 Calcium 7.0 L* Prot Corrected Calcium 7.4 L* Total Bilirubin 0.7 AST 70 H ALT 28 Alkaline Phosphatase 63 Total Protein 6.4 Albumin 2.7 L Nasal Screen MRSA (PCR) Assessment and Plan - Assessment (1) Alcohol withdrawal Code(s): F10.239 - Alcohol dependence with withdrawal, unspecified Status: Acute (2) NIKUNJ (acute kidney injury) Code(s): N17.9 - Acute kidney failure, unspecified Status: Acute (3) Hypocalcemia Code(s): E83.51 - Hypocalcemia Status: Acute - Plan 63-year-old male admitted with alcohol withdrawal, early DTs. Alcohol withdrawal, early DTs: Still very confused and agitated. - Continue CIWA protocol. - Continue scheduled Librium - Supportive care with IV fluid - Frequent redirection. Patient was sent from [facility]. He was seen by psychiatry. Recommendation to discharge to [facility] when ready. Acute kidney injury: Secondary to dehydration. Resolved with IV fluid. Hypokalemia/hypomagnesemia: - Replace and monitor Hypertension: Accelerated due to withdrawal. - Continue clonidine. DVT PPx: SCDs (1) Alcohol withdrawal Qualifiers: Complication of substance-induced condition: with delirium Qualified Code(s) : F10.231 - Alcohol dependence with withdrawal delirium
[2018-05-10] MEDS ORDERED: Calcium Chloride Inj 1 GM in Dextrose 5% in Water Inj 100 ML IV.SIG ONE ×2 (10:00)
[2018-05-10] MEDS: Senna/Docusate Sodium 8.6/50 MG Tablet PO SCH ×2 (10:01→20:07)
[2018-05-10] MEDS: Multivitamin Inj 10 ML, Folic Acid Inj 1 MG in Sodium Chlor 0.9% Inj 500 ML IV.SIG SCH (10:19)
[2018-05-10] MEDS: Mag Sulf 1 gm/100 ml Premix 100 ML IV.SIG SCH ×2 (17:59→20:07)
[2018-05-11] MEDS: Haloperidol Inj 5 MG/ML Ampul IV.PUSH PRN ×4 (00:41→21:56)
[2018-05-11] MEDS: Sod Chloride 0.9% Inj 1,000 ML IV.CONT SCH ×3 (01:44→18:31)
[2018-05-11] MEDS: chlordiazePOXIDE 25 MG Capsule PO SCH ×3 (03:26→17:01)
[2018-05-11 05:23] LABS: Hematocrit 36.2 % (39.0-51.0); Hemoglobin 12.2 gm/dL (13.0-17.0); Mean Corpuscular HGB Conc 33.6 % (32.0-36.0); Mean Corpuscular Hemoglobin 33.3 pg (27.0-34.0); Mean Corpuscular Volume 99.1 fL (80.0-100.0); Platelet Count 131 th/mm3 (150-450); Red Blood Count 3.65 mil/mm3 (4.50-5.90); Red Cell Distribution Width 14.8 % (11.6-17.2); White Blood Count 10.5 th/mm3 (4.0-11.0)
[2018-05-11 05:35] LABS: Anion Gap 11 meq/L (5-15); Blood Urea Nitrogen 7 mg/dL (7-18); Calcium 7.5 mg/dL (8.5-10.1); Carbon Dioxide 23.6 meq/L (21.0-32.0); Chloride 106 meq/L (98-107); Glomerular Filtration Rate Greater Than 89 mL/min (>89); Glucose,Random 99 mg/dL (74-106); Magnesium 1.1 mg/dL (1.5-2.5); Potassium 3.1 meq/L (3.5-5.1); Sodium 141 meq/L (136-145)
[2018-05-11] MEDS: Chlorhexidine Gluconate 2% 1 Pack (2 Cloths) TOPICAL SCH (07:42)
[2018-05-11] MEDS: Multivitamin Inj 10 ML, Folic Acid Inj 1 MG in Sodium Chlor 0.9% Inj 500 ML IV.SIG SCH (09:44)
[2018-05-11] MEDS: Senna/Docusate Sodium 8.6/50 MG Tablet PO SCH ×2 (09:48→21:54)
--- NOTE | 2018-05-11 10:46 | P.PN ---
Subjective Interval history: This is a pleasant 63 y/o male with Hepatitis C, Hypertension, Alcohol abuse, was transferred from [facility] for AMS, combative on admission, obvious withdrawal, Hypertensive, Thrombocytopenic 70, Acute kidney injury Creatinine 1.56, Hypocalcemia, CT Head with no acute findings. CXR normal. 05/11: Seen in intensive Care unit, patient continue Lethargic, awake but does not follow commands continue intensive care management has electrolyte derangement replacing and following, continue supportive care. no nausea, vomit or diarrhea. Physical Exam Vital signs: Vital Signs 05/10/18 11:20 05/10/18 12:00 05/10/18 12:01 Temperature 98.0 F Pulse Rate 68 65 Respiratory Rate 24 27 H Blood Pressure 186/99 H 152/78 H 152/78 H Pulse Oximetry 92 L 97 05/10/18 13:00 05/10/18 13:01 05/10/18 14:00 Temperature Pulse Rate 69 55 L 66 Respiratory Rate 22 15 10 L Blood Pressure 176/87 H 153/90 H Pulse Oximetry 97 99 97 05/10/18 15:00 05/10/18 15:01 05/10/18 16:00 Temperature 98.2 F Pulse Rate 71 60 63 Respiratory Rate 17 14 15 Blood Pressure 173/88 H 203/98 H Pulse Oximetry 99 99 98 05/10/18 17:00 05/10/18 17:01 05/10/18 18:00 Temperature Pulse Rate 102 H 108 H 61 Respiratory Rate 24 25 H 16 Blood Pressure 143/80 H Pulse Oximetry 97 97 96 05/10/18 18:01 05/10/18 18:08 05/10/18 19:00 Temperature Pulse Rate 77 68 93 H Respiratory Rate 20 17 29 H Blood Pressure 203/94 H 156/79 H Pulse Oximetry 95 96 97 05/10/18 19:01 05/10/18 20:00 05/10/18 21:00 Temperature 98.0 F Pulse Rate 103 H 85 97 H Respiratory Rate 21 18 20 Blood Pressure 159/113 H 183/87 H 154/85 H Pulse Oximetry 98 97 98 05/10/18 22:00 05/10/18 23:00 05/10/18 23:01 Temperature Pulse Rate 111 H 101 H Respiratory Rate 36 H 24 Blood Pressure 185/97 H 166/87 H Pulse Oximetry 100 97 100 05/11/18 00:00 05/11/18 00:01 05/11/18 00:18 Temperature Pulse Rate 110 H 97 H Respiratory Rate 30 H 39 H 26 H Blood Pressure 184/91 H 158/90 H Pulse Oximetry 79 L 05/11/18 01:00 05/11/18 01:01 05/11/18 01:29 Temperature Pulse Rate 122 H 124 H Respiratory Rate 18 5 L Blood Pressure 150/105 H 181/93 H Pulse Oximetry 100 100 05/11/18 01:39 05/11/18 02:00 05/11/18 02:01 Temperature Pulse Rate 182 H Respiratory Rate 28 H 18 18 Blood Pressure 177/87 H 156/90 H Pulse Oximetry 100 100 100 05/11/18 03:00 05/11/18 03:01 05/11/18 03:28 Temperature Pulse Rate 105 H 85 Respiratory Rate 20 35 H 18 Blood Pressure 190/92 H 165/88 H Pulse Oximetry 99 99 98 05/11/18 04:00 05/11/18 04:35 05/11/18 05:00 Temperature 98.1 F Pulse Rate 166 H Respiratory Rate 21 16 16 Blood Pressure 170/89 H 160/94 H 157/93 H Pulse Oximetry 98 98 99 Intake & Output 05/10/18 05/11/18 05/11/18 18:59 06:59 18:59 Intake Total 1100 / 1100 60 / 60 Balance 1100 / 1100 60 / 60 Weight 74 kg Intake: IV 1100 / 1100 NS Inj 1,000 ML @ 100 mls/hr IV 1000 / 1000 .CONT .Q10H SUSAN Rx#:[id number] Calcium Chloride Inj 1 GM In 0 / 0 D5W Inj 100 ML @ 110 mls/hr IV. SIG ONCE ONE Rx#:[id number] Magnesium Sulfate 1 gm/D5W 100 100 / 100 ml Premix 100 ML @ 100 mls/hr IV.SIG Q1H SUSAN Rx#:[id number] Oral 60 / 60 Other: # Incontinent Voids 3 Date of Last Bowel Movement 05/09/18 05/11/18 Narrative: GENERAL: Disheveled male, lethargic. CARDIOVASCULAR: Normal rate and regular rhythm without murmurs, gallops, or rubs. tachycardia RESPIRATORY: Breath sounds equal and clear to auscultation bilaterally. GASTROINTESTINAL: Abdomen soft, non-tender, non-distended. Normal active bowel sounds MUSCULOSKELETAL: Extremities without cyanosis, or edema. NEURO: Confused and easily agitated. Moves all ext x4 Results - Labs CBC & Chem 7: 05/11/18 04:10 05/11/18 04:10 Laboratory Results - last 24 hr 05/10/18 05/10/18 05/10/18 11:00 13:13 18:10 WBC RBC Hgb Hct MCV MCH MCHC RDW Plt Count MPV Sodium Potassium Chloride Carbon Dioxide Anion Gap BUN Creatinine Estimated GFR POC Glucose 113 H 137 H 128 H Random Glucose Calcium Magnesium 05/11/18 05/11/18 04:10 04:10 WBC 10.5 RBC 3.65 L Hgb 12.2 L Hct 36.2 L MCV 99.1 MCH 33.3 MCHC 33.6 RDW 14.8 Plt Count 131 L D MPV 9.0 Sodium 141 Potassium 3.1 L Chloride 106 Carbon Dioxide 23.6 Anion Gap 11 BUN 7 Creatinine 0.60 Estimated GFR Greater than 89 POC Glucose Random Glucose 99 Calcium 7.5 L Magnesium 1.1 L Microbiology 05/09/18 05:55 Catheterized Urine Urine Culture - Final No growth in 48 hours - Imaging Chest X-Ray 05/09/18 00:50 CONCLUSION: No acute abnormality is seen. Head CT 05/09/18 00:50 CONCLUSION: 1. No acute abnormality is seen. 2. Atrophy. Assessment and Plan - Assessment (1) Alcohol withdrawal Code(s): F10.239 - Alcohol dependence with withdrawal, unspecified Status: Acute (2) NIKUNJ (acute kidney injury) Code(s): N17.9 - Acute kidney failure, unspecified Status: Acute (3) Hypocalcemia Code(s): E83.51 - Hypocalcemia Status: Acute - Plan 1. Alcohol Withdrawal: h/o Alcohol Abuse, tx from [facility] for acute AMS, sent w/ Philip Act, +active withdrawal. at this time in intensive Care Unit, CIWA protocol, Seizure Precautions, MVT /Thiamine/Folate replacement. 2. Electrolyte derangement, had Calcium replacement, Potassium 3.1 replaced, magnesium 1.1 replaced following asked for laboratory at 1600 hours today and in am tomorrow at 0600 hours. 3. NIKUNJ Improved. marketing planning manager PT evaluation Psychiatric evaluation DVT Prophylaxis: SCD/Teds Code Status: Full code Discussed Condition With: Nurse, patient Lethargic unable to participate. Discharge Planning: Expected in the next 2 days. (1) Alcohol withdrawal Qualifiers: Complication of substance-induced condition: with delirium Qualified Code(s) : F10.231 - Alcohol dependence with withdrawal delirium
[2018-05-11] MEDS ORDERED: Magnesium Sulfate Inj 2 GM in Sodium Chlor 0.9% Inj 96 ML IV.SIG ONE (12:00)
[2018-05-11] MEDS: POTASSIUM CHLORIDE IV.SIG SCH ×4 (12:09→15:57)
[2018-05-11] MEDS: guaiFENesin 600 MG ER Tablet PO SCH ×2 (12:09→21:53)
[2018-05-11] MEDS ORDERED: hydrALAZINE HCl Inj 20 MG/ML Vial IV.PUSH PRN (16:24)
[2018-05-11 17:03] LABS: Potassium 3.5 meq/L (3.5-5.1)
[2018-05-11 17:08] LABS: Phosphorus 3.5 mg/dL (2.5-4.9)
[2018-05-11] MEDS ORDERED: niCARdipine Inj 25 MG in Sodium Chlor 0.9% Inj 240 ML IV.CONT PRN (18:39)
[2018-05-12] MEDS: Haloperidol Inj 5 MG/ML Ampul IV.PUSH PRN ×3 (00:36→05:44)
[2018-05-12] MEDS: chlordiazePOXIDE 25 MG Capsule PO SCH ×3 (01:11→18:22)
[2018-05-12] MEDS: Sod Chloride 0.9% Inj 1,000 ML IV.CONT SCH (02:05)
[2018-05-12] MEDS: Chlorhexidine Gluconate 2% 1 Pack (2 Cloths) TOPICAL SCH (05:43)
[2018-05-12 07:22] LABS: Anion Gap 11 meq/L (5-15); Blood Urea Nitrogen 4 mg/dL (7-18); Calcium 7.4 mg/dL (8.5-10.1); Chloride 107 meq/L (98-107); Glomerular Filtration Rate Greater Than 89 mL/min (>89); Glucose,Random 83 mg/dL (74-106); Magnesium 1.1 mg/dL (1.5-2.5); Sodium 141 meq/L (136-145)
[2018-05-12 07:46] LABS: Total Protein 6.2 g/dL (6.4-8.2)
--- NOTE | 2018-05-12 08:22 | P.PN ---
Subjective Interval history: This is a pleasant 63 y/o male with Hepatitis C, Hypertension, Alcohol abuse, was transferred from [facility] for AMS, combative on admission, obvious withdrawal, Hypertensive, Thrombocytopenic 70, Acute kidney injury Creatinine 1.56, Hypocalcemia, CT Head with no acute findings. CXR normal. 05/11: Seen in intensive Care unit, patient continue Lethargic, awake but does not follow commands continue intensive care management has electrolyte derangement replacing and following, continue supportive care. 05/12: Discussed with Miss Quinteros he is more alert today, but continue to need Intensive Care Management Lethargic, but more alert than yesterday, replacing electrolytes and following. Physical Exam Vital signs: Vital Signs 05/11/18 12:00 05/11/18 16:00 05/11/18 18:00 Temperature 98.5 F 98.7 F Pulse Rate 79 64 63 Respiratory Rate 20 21 Blood Pressure 181/87 H 188/92 H Pulse Oximetry 100 99 05/11/18 20:00 05/11/18 23:45 05/12/18 00:00 Temperature 99.7 F H 98.7 F Pulse Rate 63 122 H 133 H Respiratory Rate 15 20 25 H Blood Pressure 173/90 H 125/79 Pulse Oximetry 100 99 05/12/18 04:00 05/12/18 07:38 Temperature 99 F Pulse Rate 84 90 Respiratory Rate 20 18 Blood Pressure 146/65 H Pulse Oximetry 96 Intake & Output 05/11/18 05/12/18 05/12/18 18:59 06:59 18:59 Intake Total 400 / 400 1590.2 / 1590.2 Output Total 700 / 700 1999 Balance -300 / -300 -409.8 / -409.8 -1999 Weight 73.5 kg Intake: IV 400 / 400 1560.2 / 1560.2 NS Inj 1,000 ML @ 100 mls/hr IV 1000 / 1000 .CONT .Q10H SUSAN Rx#:[id number] MVI-12 Inj 10 ML Folvite Inj 1 510.2 / 510.2 MG In NS Inj 500 ML @ 125 mls/ hr IV.SIG DAILY SUSAN Rx#: [id number] KCl 10 mEq Premix Inj 10 meq In 400 / 400 100 ml @ 100 mls/hr IV.SIG Q1H SUSAN Rx#:[id number] Oral 30 / 30 Output: Urine 700 / 700 1999 Stool 0 / 0 Urine/Stool Mix 0 / 0 0 / 0 Other: Date of Last Bowel Movement 05/11/18 05/11/18 # Bowel Movements 0 0 # Incontinent Bowel Movements 0 Narrative: GENERAL: Disheveled male, lethargic. CARDIOVASCULAR: Normal rate and regular rhythm without murmurs, gallops, or rubs. tachycardia RESPIRATORY: Breath sounds equal and clear to auscultation bilaterally. GASTROINTESTINAL: Abdomen soft, non-tender, non-distended. Normal active bowel sounds MUSCULOSKELETAL: Extremities without cyanosis, or edema. NEURO: Confused but more alert than yesterday. Moves all ext x4 Results - Labs CBC & Chem 7: 05/11/18 04:10 05/12/18 05:52 Laboratory Results - last 24 hr 05/11/18 05/11/18 05/12/18 16:03 17:04 05:52 Sodium 141 Potassium 3.5 4.0 Chloride 107 Carbon Dioxide 23.0 Anion Gap 11 BUN 4 L Creatinine 0.36 L Estimated GFR Greater than 89 POC Glucose 96 Random Glucose 83 Calcium 7.4 L* Prot Corrected Calcium 7.9 L Phosphorus 3.5 3.0 Magnesium 1.0 L 1.1 L Total Protein 6.2 L 05/12/18 06:10 Sodium Potassium Chloride Carbon Dioxide Anion Gap BUN Creatinine Estimated GFR POC Glucose 101 Random Glucose Calcium Prot Corrected Calcium Phosphorus Magnesium Total Protein Microbiology 05/09/18 05:55 Catheterized Urine Urine Culture - Final No growth in 48 hours Assessment and Plan - Assessment (1) Alcohol withdrawal Code(s): F10.239 - Alcohol dependence with withdrawal, unspecified Status: Acute (2) NIKUNJ (acute kidney injury) Code(s): N17.9 - Acute kidney failure, unspecified Status: Acute (3) Hypocalcemia Code(s): E83.51 - Hypocalcemia Status: Acute - Plan 1. Alcohol Withdrawal: h/o Alcohol Abuse, tx from [facility] for acute AMS, sent w/ Philip Act, +active withdrawal. at this time in intensive Care Unit, CIWA protocol, Seizure Precautions, MVT /Thiamine/Folate replacement. continue present care. 2. Electrolyte derangement, replaced and following, today Magnesium continue low given 4 grams in am and now another four grams, following. 3. NIKUNJ Improved. 4. Hypertensive Urgency on Cardene stopped in am due to improvement of blood pressure. resort manager PT evaluation Psychiatric evaluation DVT Prophylaxis: SCD/Teds Code Status: Full code. Discussed Condition With: Patient, Nurse Miss Quinteros and Refrigerator Repairman. Discharge Planning: Expected in the next 2 days. (1) Alcohol withdrawal Qualifiers: Complication of substance-induced condition: with delirium Qualified Code(s) : F10.231 - Alcohol dependence with withdrawal delirium
[2018-05-12] MEDS: guaiFENesin 600 MG ER Tablet PO SCH ×2 (08:44→21:04)
[2018-05-12] MEDS: Senna/Docusate Sodium 8.6/50 MG Tablet PO SCH ×2 (08:44→21:06)
[2018-05-12] MEDS: Multivitamin Inj 10 ML, Folic Acid Inj 1 MG in Sodium Chlor 0.9% Inj 500 ML IV.SIG SCH (08:45)
[2018-05-12] MEDS ORDERED: Magnesium Sulfate Inj 4 GM in Sodium Chlor 0.9% Inj 92 ML IV.SIG ONE (10:00)
[2018-05-12] MEDS ORDERED: Magnesium Sulfate Inj 4 GM in Dextrose 5% in Water Inj 100 ML IV.SIG ONE ×2 (16:00)
--- NOTE | 2018-05-12 16:14 | P.DIET ---
Nutritional Evaluation Screening comments: Pt has been npo since admission (3days). If diet can not be advanced within the next 24 hours, recommend nutrition support be considered.
[2018-05-12] MEDS: Dextrose 5%/NaCl 0.9% Inj 1,000 ML IV.CONT SCH ×2 (16:22→21:04)
--- NOTE | 2018-05-12 19:52 | ECG ---
Date Performed: 05/11/2018 Time Performed: 22:52:16 PTAGE: 63 years EKG: Sinus tachycardia Possible left atrial abnormality Left anterior fascicular block rSr'(V1) - probable normal variant Anterior infarct - age undetermined Possible inferior infarct - age undeter mined Lateral ST changes are nonspecific Abnormal ECG PREVIOUS TRACING :05/09/2018@02.58 Since the previous tracing, no significant change noted DOCTOR: Kristina Patel Interpretating Date/Time 05/12/2018 19:50:00
[2018-05-12 23:39] LABS: Anion Gap 12 meq/L (5-15); Blood Urea Nitrogen 5 mg/dL (7-18); Calcium 7.3 mg/dL (8.5-10.1); Carbon Dioxide 25.3 meq/L (21.0-32.0); Chloride 107 meq/L (98-107); Glomerular Filtration Rate Greater Than 89 mL/min (>89); Glucose,Random 146 mg/dL (74-106); Magnesium 1.3 mg/dL (1.5-2.5); Sodium 144 meq/L (136-145)
[2018-05-12 23:46] LABS: Potassium 2.9 meq/L (3.5-5.1)
[2018-05-12] MEDS ORDERED: Potassium Phosphate Inj 30 MMOL in Sodium Chlor 0.9% Inj 250 ML IV.SIG PRN (23:56)
[2018-05-12] MEDS ORDERED: Sodium Phosphate Inj 30 MMOL in Sodium Chlor 0.9% Inj 250 ML IV.SIG PRN (23:56)
[2018-05-12] MEDS ORDERED: Potassium Chlor 40 mEq Premix 40 MEQ/100 ML PIGGYBACK IV.SIG PRN ×2 (23:56)
[2018-05-12] MEDS ORDERED: Potassium Chlor 20 mEq Premix 20 MEQ/100 ML PIGGYBACK IV.SIG PRN (23:56)
[2018-05-12] MEDS ORDERED: Magnesium Sulfate Inj 4 GM in Sodium Chlor 0.9% Inj 92 ML IV.SIG PRN (23:56)
[2018-05-12] MEDS ORDERED: Potassium Chloride 25 MEQ Effervescent Tablet PO PRN (23:56)
[2018-05-12] MEDS ORDERED: Potassium Phosphate 500 MG Soluble Tablet PO PRN ×2 (23:56)
[2018-05-12] MEDS ORDERED: Magnesium Sulfate Inj 2 GM in Sodium Chlor 0.9% Inj 96 ML IV.SIG PRN (23:56)
[2018-05-13] MEDS: Magnesium Oxide 400 MG Tablet PO PRN ×2 (00:19→08:54)
[2018-05-13] MEDS: Potassium Chlor 20 mEq Premix 20 MEQ/100 ML PIGGYBACK IV.SIG PRN ×4 (00:36→07:30)
[2018-05-13] MEDS: chlordiazePOXIDE 25 MG Capsule PO SCH ×3 (02:28→18:39)
[2018-05-13] MEDS: Dextrose 5%/NaCl 0.9% Inj 1,000 ML IV.CONT SCH ×4 (03:06→22:21)
[2018-05-13] MEDS: Chlorhexidine Gluconate 2% 1 Pack (2 Cloths) TOPICAL SCH (04:00)
--- NOTE | 2018-05-13 08:44 | P.PN ---
Subjective Interval history: This is a pleasant 63 y/o male with Hepatitis C, Hypertension, Alcohol abuse, was transferred from [facility] for AMS, combative on admission, obvious withdrawal, Hypertensive, Thrombocytopenic 70, Acute kidney injury Creatinine 1.56, Hypocalcemia, CT Head with no acute findings. CXR normal. 05/11: Seen in intensive Care unit, patient continue Lethargic, awake but does not follow commands continue intensive care management has electrolyte derangement replacing and following, continue supportive care. 05/12: Discussed with Miss Quinteros he is more alert today, but continue to need Intensive Care Management Lethargic, but more alert than yesterday, replacing electrolytes and following. 05/13: Discussed with nurse Miss Pelaez patient stable, talking, conversant already eating, Improving condition electrolyte derangement and Hypertension with the need for Cardene drip and also for electrolyte replacement no nausea, vomit or diarrhea continue present care. Physical Exam Vital signs: Vital Signs 05/12/18 11:12 05/12/18 19:47 05/12/18 20:00 Temperature 98.5 F Pulse Rate 75 77 80 Respiratory Rate 12 16 16 Blood Pressure 135/74 Pulse Oximetry 100 05/12/18 23:14 05/13/18 00:00 05/13/18 03:20 Temperature 98.6 F Pulse Rate 87 98 H 96 H Respiratory Rate 16 23 16 Blood Pressure 129/81 Pulse Oximetry 100 05/13/18 04:00 Temperature 98.5 F Pulse Rate 116 H Respiratory Rate 26 H Blood Pressure 155/93 H Pulse Oximetry 100 Intake & Output 05/12/18 05/13/18 05/13/18 18:59 06:59 18:59 Intake Total 1560.2 / 1560.2 1408 / 1408 Output Total 1999 Balance -439.8 / -439.8 1408 / 1408 Weight 74 kg Intake: IV 1560.2 / 1560.2 1408 / 1408 D5W/Normal Saline Inj 1,000 ML 1000 / 1000 @ 100 mls/hr IV.CONT .Q10H SUSAN Rx#:[id number] NS Inj 1,000 ML @ 100 mls/hr IV 1000 / 1000 .CONT .Q10H SUSAN Rx#:[id number] Magnesium Sulfate Inj 4 GM In 108 / 108 D5W Inj 100 ML @ 25 mls/hr IV. SIG ONCE ONE Rx#:[id number] MVI-12 Inj 10 ML Folvite Inj 1 510.2 / 510.2 MG In NS Inj 500 ML @ 125 mls/ hr IV.SIG DAILY SUSAN Rx#: [id number] KCl 20 mEq Premix Inj 20 meq In 200 / 200 100 ml @ 50 mls/hr IV.SIG Q2H PRN Rx#:[id number] Output: Urine 1999 / 1999 Urine/Stool Mix 0 / 0 Other: Date of Last Bowel Movement 05/11/18 05/13/18 # Bowel Movements 0 # Incontinent Bowel Movements 0 Narrative: GENERAL: Alert and Oriented x 3. CARDIOVASCULAR: Normal rate and regular rhythm without murmurs, gallops, or rubs. tachycardia RESPIRATORY: Breath sounds equal and clear to auscultation bilaterally. GASTROINTESTINAL: Abdomen soft, non-tender, non-distended. Normal active bowel sounds MUSCULOSKELETAL: Extremities without cyanosis, or edema. NEURO: Moves all ext x4 Results - Labs CBC & Chem 7: 05/11/18 04:10 05/12/18 22:17 Laboratory Results - last 24 hr 05/12/18 05/12/18 05/12/18 08:54 13:47 20:18 Sodium Potassium Chloride Carbon Dioxide Anion Gap BUN Creatinine Estimated GFR POC Glucose 98 123 H Random Glucose Calcium Prot Corrected Calcium Magnesium 1.0 L Total Protein 05/12/18 05/13/18 05/13/18 22:17 03:53 08:18 Sodium 144 Potassium 2.9 L* D Chloride 107 Carbon Dioxide 25.3 Anion Gap 12 BUN 5 L Creatinine 0.51 L Estimated GFR Greater than 89 POC Glucose 134 H Random Glucose 146 H Calcium 7.3 L* Prot Corrected Calcium 7.9 L Magnesium 1.3 L 1.4 L Total Protein 6.0 L Assessment and Plan - Assessment (1) Alcohol withdrawal Code(s): F10.239 - Alcohol dependence with withdrawal, unspecified Status: Acute (2) NIKUNJ (acute kidney injury) Code(s): N17.9 - Acute kidney failure, unspecified Status: Acute (3) Hypocalcemia Code(s): E83.51 - Hypocalcemia Status: Acute - Plan 1. Alcohol Withdrawal: h/o Alcohol Abuse, tx from [facility] for acute AMS, sent w/ [facility] Act, +active withdrawal. at this time in intensive Care Unit, CIWA protocol, Seizure Precautions, MVT /Thiamine/Folate replacement. continue present care. 2. Electrolyte derangement, replaced and following, today Magnesium continue low given 4 grams in am and now another four grams, following. 3. NIKUNJ Improved. 4. Hypertensive Urgency re started Cardene as needed manager registration PT evaluation Psychiatric evaluation DVT Prophylaxis: SCD/Teds Code Status: Full code. Discussed Condition With: patient and nurse. Discharge Planning: Expected in the next 2 days. (1) Alcohol withdrawal Qualifiers: Complication of substance-induced condition: with delirium Qualified Code(s) : F10.231 - Alcohol dependence with withdrawal delirium
[2018-05-13] MEDS: Senna/Docusate Sodium 8.6/50 MG Tablet PO SCH ×2 (08:54→21:09)
[2018-05-13] MEDS: guaiFENesin 600 MG ER Tablet PO SCH ×2 (08:54→21:09)
[2018-05-13] MEDS: Multivitamin Inj 10 ML, Folic Acid Inj 1 MG in Sodium Chlor 0.9% Inj 500 ML IV.SIG SCH (11:26)
[2018-05-13 12:55] LABS: Anion Gap 7 meq/L (5-15); Blood Urea Nitrogen 4 mg/dL (7-18); Calcium 7.4 mg/dL (8.5-10.1); Carbon Dioxide 25.2 meq/L (21.0-32.0); Chloride 113 meq/L (98-107); Glomerular Filtration Rate Greater Than 89 mL/min (>89); Glucose,Random 131 mg/dL (74-106); Magnesium 1.4 mg/dL (1.5-2.5); Potassium 3.8 meq/L (3.5-5.1); Sodium 145 meq/L (136-145)
[2018-05-14] MEDS: Haloperidol Inj 5 MG/ML Ampul IV.PUSH PRN (00:47)
[2018-05-14] MEDS: Dextrose 5%/NaCl 0.9% Inj 1,000 ML IV.CONT SCH ×3 (02:16→09:07)
[2018-05-14] MEDS: chlordiazePOXIDE 25 MG Capsule PO SCH ×2 (02:21→09:10)
[2018-05-14] MEDS: Chlorhexidine Gluconate 2% 1 Pack (2 Cloths) TOPICAL SCH (03:40)
--- NOTE | 2018-05-14 08:28 | P.PN ---
Subjective Interval history: This is a pleasant 63 y/o male with Hepatitis C, Hypertension, Alcohol abuse, was transferred from [facility] for AMS, combative on admission, obvious withdrawal, Hypertensive, Thrombocytopenic 70, Acute kidney injury Creatinine 1.56, Hypocalcemia, CT Head with no acute findings. CXR normal. 05/11: Seen in intensive Care unit, patient continue Lethargic, awake but does not follow commands continue intensive care management has electrolyte derangement replacing and following, continue supportive care. 05/12: Discussed with Miss Quinteros he is more alert today, but continue to need Intensive Care Management Lethargic, but more alert than yesterday, replacing electrolytes and following. 05/13: Discussed with nurse Miss Pelaez patient stable, talking, conversant already eating, Improving condition electrolyte derangement and Hypertension with the need for Cardene drip and also for electrolyte replacement 05/14: Stable in his bedroom, now able to eat, continue with Electrolyte derangement replacing and continue with Hypertensive Emergency, increased dosages of Amlodipine to 10 mg daily and Clonidine to 0.2 mg TID also his IV fluids decreased to 42 ml per hour. no nausea, vomit or diarrhea. Physical Exam Vital signs: Vital Signs 05/13/18 09:00 05/13/18 10:00 05/13/18 10:19 Temperature Pulse Rate 114 H 107 H 106 H Respiratory Rate 18 19 23 Blood Pressure 183/85 H 165/83 H Pulse Oximetry 99 96 97 05/13/18 11:00 05/13/18 11:07 05/13/18 11:38 Temperature Pulse Rate 102 H 86 81 Respiratory Rate 14 19 18 Blood Pressure 175/100 H 185/101 H Pulse Oximetry 97 97 05/13/18 12:00 05/13/18 12:01 05/13/18 13:00 Temperature 98.4 F Pulse Rate 89 89 92 H Respiratory Rate 8 L 12 16 Blood Pressure 168/90 H 168/90 H 155/82 H Pulse Oximetry 97 98 97 05/13/18 14:00 05/13/18 14:01 05/13/18 15:00 Temperature Pulse Rate 85 87 93 H Respiratory Rate 16 15 22 Blood Pressure 186/90 H 186/109 H Pulse Oximetry 99 99 98 05/13/18 15:06 05/13/18 16:00 05/13/18 17:00 Temperature 98.2 F Pulse Rate 85 92 H 89 Respiratory Rate 15 6 L 12 Blood Pressure 180/88 H 181/85 H Pulse Oximetry 98 99 05/13/18 18:00 05/13/18 19:00 05/13/18 19:01 Temperature Pulse Rate 102 H 107 H 107 H Respiratory Rate 21 15 20 Blood Pressure 148/89 H 174/93 H Pulse Oximetry 98 98 05/13/18 20:00 05/13/18 20:03 05/13/18 21:00 Temperature 98.4 F Pulse Rate 89 80 91 H Respiratory Rate 18 16 19 Blood Pressure 201/96 H 201/92 H Pulse Oximetry 99 98 05/13/18 21:16 05/13/18 22:00 05/13/18 23:00 Temperature Pulse Rate 115 H 92 H 125 H Respiratory Rate 18 17 29 H Blood Pressure 188/87 H Pulse Oximetry 98 97 97 05/13/18 23:27 05/14/18 00:00 05/14/18 02:10 Temperature 98.0 F Pulse Rate 89 88 Respiratory Rate 19 30 H Blood Pressure Pulse Oximetry 05/14/18 03:43 05/14/18 04:00 05/14/18 06:10 Temperature 97.8 F Pulse Rate 99 H 111 H 110 H Respiratory Rate 22 24 Blood Pressure 180/84 H Pulse Oximetry 96 Intake & Output 05/13/18 05/14/18 05/14/18 18:59 06:59 18:59 Intake Total 1680 / 1680 1000 / 1000 Output Total 650 / 650 Balance 1030 / 1030 1000 / 1000 Weight 75.5 kg Intake: IV 1200 / 1200 1000 / 1000 D5W/Normal Saline Inj 1,000 ML 1000 / 1000 1000 / 1000 @ 100 mls/hr IV.CONT .Q10H SUSAN Rx#:[id number] KCl 20 mEq Premix Inj 20 meq In 200 / 200 100 ml @ 50 mls/hr IV.SIG Q2H PRN Rx#:[id number] Oral 480 / 480 Output: Urine 650 / 650 Other: Date of Last Bowel Movement 05/13/18 # Bowel Movements 0 Narrative: GENERAL: Alert and Oriented x 3. CARDIOVASCULAR: Normal rate and regular rhythm without murmurs, gallops, or rubs. tachycardia RESPIRATORY: Breath sounds equal and clear to auscultation bilaterally. GASTROINTESTINAL: Abdomen soft, non-tender, non-distended. Normal active bowel sounds MUSCULOSKELETAL: Extremities without cyanosis, or edema. NEURO: Moves all ext x4 Results - Labs CBC & Chem 7: 05/11/18 04:10 05/14/18 12:00 Laboratory Results - last 24 hr 05/13/18 05/13/18 05/13/18 08:18 11:52 12:13 Sodium 145 Potassium 3.8 D Chloride 113 H Carbon Dioxide 25.2 Anion Gap 7 BUN 4 L Creatinine 0.52 L Estimated GFR Greater than 89 POC Glucose 134 H 144 H Random Glucose 131 H Calcium 7.4 L* Prot Corrected Calcium 8.0 L Magnesium 1.4 L Total Protein 6.0 L 05/13/18 05/13/18 05/14/18 16:57 21:28 07:57 Sodium Potassium Chloride Carbon Dioxide Anion Gap BUN Creatinine Estimated GFR POC Glucose 107 112 H 123 H Random Glucose Calcium Prot Corrected Calcium Magnesium Total Protein Assessment and Plan - Assessment (1) Alcohol withdrawal Code(s): F10.239 - Alcohol dependence with withdrawal, unspecified Status: Acute (2) NIKUNJ (acute kidney injury) Code(s): N17.9 - Acute kidney failure, unspecified Status: Acute (3) Hypocalcemia Code(s): E83.51 - Hypocalcemia Status: Acute - Plan 1. Alcohol Withdrawal: h/o Alcohol Abuse, tx from [facility] for acute AMS, sent w/ Philip Act, +active withdrawal. at this time in intensive Care Unit, CIWA protocol, Seizure Precautions, MVT /Thiamine/Folate replacement. continue present care. Improving condition no signs of withdrawal at this time. 2. Electrolyte derangement, today Potassium is 3.3 replaced and Magnesium 1.3 continue replacement will start scheduled dosages of Potassium and Magnesium and follow in am tomorrow. 3. NIKUNJ Improved. 4. Hypertensive Urgency, Cardene was removed, Amlodipine 10 mg daily, Clonidine 0.2 mg TID and decreased IV fluids to 42 ml per hour. manager respiratory care PT evaluation Psychiatric evaluation DVT Prophylaxis: SCD/Teds Code Status: Full Code. Discussed Condition With: Patient and nurse Miss Pelaez Discharge Planning: Expected in the next 2 days. (1) Alcohol withdrawal Qualifiers: Complication of substance-induced condition: with delirium Qualified Code(s) : F10.231 - Alcohol dependence with withdrawal delirium
[2018-05-14] MEDS ORDERED: amLODIPine 5 MG Tablet PO SCH ×2 (09:00)
[2018-05-14] MEDS: guaiFENesin 600 MG ER Tablet PO SCH ×2 (09:10→20:46)
[2018-05-14] MEDS: Senna/Docusate Sodium 8.6/50 MG Tablet PO SCH ×2 (09:10→20:46)
[2018-05-14] MEDS ORDERED: amLODIPine 5 MG Tablet PO ONE (10:06)
[2018-05-14] MEDS ORDERED: Sod Chloride 0.9% Inj 1,000 ML IV.CONT SCH (10:10)
[2018-05-14 12:50] LABS: Anion Gap 10 meq/L (5-15); Blood Urea Nitrogen 5 mg/dL (7-18); Calcium 7.4 mg/dL (8.5-10.1); Carbon Dioxide 24.4 meq/L (21.0-32.0); Chloride 107 meq/L (98-107); Glomerular Filtration Rate Greater Than 89 mL/min (>89); Glucose,Random 100 mg/dL (74-106); Magnesium 1.3 mg/dL (1.5-2.5); Potassium 3.3 meq/L (3.5-5.1); Sodium 141 meq/L (136-145)
[2018-05-14 13:04] LABS: Total Protein 5.9 g/dL (6.4-8.2)
[2018-05-14] MEDS ORDERED: Magnesium Sulfate Inj 2 GM in Sodium Chlor 0.9% Inj 96 ML IV.SIG ONE (14:56)
[2018-05-14] MEDS: Magnesium Oxide 400 MG Tablet PO SCH (20:47)
[2018-05-15 07:43] LABS: Anion Gap 9 meq/L (5-15); Blood Urea Nitrogen 5 mg/dL (7-18); Calcium 7.9 mg/dL (8.5-10.1); Carbon Dioxide 26.4 meq/L (21.0-32.0); Chloride 104 meq/L (98-107); Glomerular Filtration Rate Greater Than 89 mL/min (>89); Glucose,Random 72 mg/dL (74-106); Magnesium 1.5 mg/dL (1.5-2.5); Potassium 4.4 meq/L (3.5-5.1); Sodium 139 meq/L (136-145)
--- NOTE | 2018-05-15 08:37 | P.PN ---
Subjective Interval history: This is a pleasant 63 y/o male with Hepatitis C, Hypertension, Alcohol abuse, was transferred from [facility] for AMS, combative on admission, obvious withdrawal, Hypertensive, Thrombocytopenic 70, Acute kidney injury Creatinine 1.56, Hypocalcemia, CT Head with no acute findings. CXR normal. 05/11: Seen in intensive Care unit, patient continue Lethargic, awake but does not follow commands continue intensive care management has electrolyte derangement replacing and following, continue supportive care. 05/12: Discussed with Miss Quinteros he is more alert today, but continue to need Intensive Care Management Lethargic, but more alert than yesterday, replacing electrolytes and following. 05/13: Discussed with nurse Miss Pelaez patient stable, talking, conversant already eating, Improving condition electrolyte derangement and Hypertension with the need for Cardene drip and also for electrolyte replacement 05/14: Stable in his bedroom, now able to eat, continue with Electrolyte derangement replacing and continue with Hypertensive Emergency, increased dosages of Amlodipine to 10 mg daily and Clonidine to 0.2 mg TID also his IV fluids decreased to 42 ml per hour. 05/15: Seen in his bedroom, discussed with nurse Edwige, patient with mild dehydration will give one bolus of NS and continue IV fluids 100 ml per hour, following laboratory for electrolyte derangement, patient is fully alert, but has some confusion. no nausea, vomit or diarrhea. Physical Exam Vital signs: Vital Signs 05/14/18 08:54 05/14/18 09:00 05/14/18 10:00 Temperature Pulse Rate 110 H 103 H 97 H Respiratory Rate 18 37 H 16 Blood Pressure 178/87 H 179/88 H Pulse Oximetry 99 99 05/14/18 11:00 05/14/18 12:00 05/14/18 12:21 Temperature 98.6 F Pulse Rate 101 H 105 H 100 H Respiratory Rate 20 20 18 Blood Pressure 173/91 H 158/82 H Pulse Oximetry 100 99 05/14/18 13:00 05/14/18 14:00 05/14/18 15:00 Temperature Pulse Rate 109 H 121 H 110 H Respiratory Rate 16 21 19 Blood Pressure 158/86 H 162/97 H 185/91 H Pulse Oximetry 99 80 L 100 05/14/18 16:00 05/14/18 17:00 08/23/18 18:00 Temperature 98.2 F Pulse Rate 82 78 80 Respiratory Rate 16 16 14 Blood Pressure 141/81 H 157/85 H 163/101 H Pulse Oximetry 100 100 100 05/14/18 19:00 05/14/18 19:55 05/14/18 20:00 Temperature 97.7 F Pulse Rate 86 96 H 86 Respiratory Rate 19 18 21 Blood Pressure 159/85 H 159/82 H Pulse Oximetry 100 100 05/14/18 21:00 05/14/18 22:00 05/14/18 23:00 Temperature Pulse Rate 104 H 86 81 Respiratory Rate 18 15 15 Blood Pressure 149/88 H 146/87 H 158/100 H Pulse Oximetry 100 100 100 05/14/18 23:06 05/15/18 00:00 05/15/18 00:51 Temperature 97.8 F Pulse Rate 82 77 96 H Respiratory Rate 16 16 20 Blood Pressure 162/91 H 144/82 H Pulse Oximetry 100 100 05/15/18 01:00 05/15/18 02:00 05/15/18 03:00 Temperature Pulse Rate 79 82 79 Respiratory Rate 23 15 18 Blood Pressure 166/87 H 131/78 152/95 H Pulse Oximetry 100 100 100 05/15/18 04:00 05/15/18 04:02 05/15/18 06:00 Temperature 98 F Pulse Rate 96 H 98 H 83 Respiratory Rate 18 20 Blood Pressure 157/105 H Pulse Oximetry 99 Intake & Output 05/14/18 05/15/18 05/15/18 18:59 06:59 18:59 Intake Total 1340 / 1340 Output Total 1400 / 1400 Balance -60 / -60 Weight 74 kg Intake: IV 1100 / 1100 D5W/Normal Saline Inj 1,000 ML 1000 / 1000 @ 100 mls/hr IV.CONT .Q10H [facility] Rx#:[id number] Magnesium Sulfate Inj 2 GM In 100 / 100 NS Inj 96 ML @ 50 mls/hr IV.SIG ONCE ONE Rx#:[id number] Oral 240 / 240 Output: Urine 1400 / 1400 Other: # Voids 2 Date of Last Bowel Movement 05/13/18 05/13/18 # Bowel Movements 1 Narrative: GENERAL: Alert, mild confusion CARDIOVASCULAR: Normal rate and regular rhythm without murmurs, gallops, or rubs. tachycardia RESPIRATORY: Breath sounds equal and clear to auscultation bilaterally. GASTROINTESTINAL: Abdomen soft, non-tender, non-distended. Normal active bowel sounds MUSCULOSKELETAL: Extremities without cyanosis, or edema. NEURO: Moves all ext x4 Results - Labs CBC & Chem 7: 05/11/18 04:10 05/15/18 03:08 Laboratory Results - last 24 hr 05/14/18 05/14/18 05/14/18 12:00 12:20 17:29 Sodium 141 Potassium 3.3 L Chloride 107 Carbon Dioxide 24.4 Anion Gap 10 BUN 5 L Creatinine 0.40 L Estimated GFR Greater than 89 POC Glucose 98 94 Random Glucose 100 Calcium 7.4 L* Prot Corrected Calcium 8.1 L Magnesium 1.3 L Total Protein 5.9 L 05/14/18 05/15/18 20:52 03:08 Sodium 139 Potassium 4.4 D Chloride 104 Carbon Dioxide 26.4 Anion Gap 9 BUN 5 L Creatinine 0.43 L Estimated GFR Greater than 89 POC Glucose 105 Random Glucose 72 L Calcium 7.9 L Prot Corrected Calcium Magnesium 1.5 Total Protein Assessment and Plan - Assessment (1) Alcohol withdrawal Code(s): F10.239 - Alcohol dependence with withdrawal, unspecified Status: Acute (2) NIKUNJ (acute kidney injury) Code(s): N17.9 - Acute kidney failure, unspecified Status: Acute (3) Hypocalcemia Code(s): E83.51 - Hypocalcemia Status: Acute - Plan 1. Alcohol Withdrawal: h/o Alcohol Abuse, tx from [facility] for acute AMS, sent w/ [facility], +active withdrawal. at this time in intensive Care Unit, CIWA protocol, Seizure Precautions, MVT /Thiamine/Folate replacement. continue present care. Improving condition no signs of withdrawal at this time. 2. Electrolyte derangement replaced and following. Magnesium today 1.5 replaced and following 3. dehydration giving IV fluids. 4. Hypertensive Urgency, Cardene was removed, Amlodipine 10 mg daily, Clonidine 0.2 mg TID, added HCTZ 12.5 mg but IV fluids had to be increased again 5. Thrombocytopenia improving, will start DVT prophylaxis due to that the patient is not having the activity required. Transfer the patient out of ICU to [facility] floor. DVT Prophylaxis: Heparin. Code Status: Full Code. Discussed Condition With: Patient and nurse Miss Gibbons. Discharge Planning: Expected for tomorrow. (1) Alcohol withdrawal Qualifiers: Complication of substance-induced condition: with delirium Qualified Code(s) : F10.231 - Alcohol dependence with withdrawal delirium
[2018-05-15] MEDS: Magnesium Oxide 400 MG Tablet PO SCH ×2 (09:37→20:36)
[2018-05-15] MEDS: Senna/Docusate Sodium 8.6/50 MG Tablet PO SCH ×2 (09:37→20:36)
[2018-05-15] MEDS: amLODIPine 5 MG Tablet PO SCH (09:38)
[2018-05-15] MEDS: guaiFENesin 600 MG ER Tablet PO SCH ×2 (09:38→20:36)
[2018-05-15] MEDS ORDERED: Magnesium Sulfate Inj 2 GM in Sodium Chlor 0.9% Inj 96 ML IV.SIG ONE (10:00)
[2018-05-15] MEDS ORDERED: Sodium Chlor 0.9% Inj 500 ML IV.SIG SCH (11:00)
[2018-05-15] MEDS: Sod Chloride 0.9% Inj 1,000 ML IV.CONT SCH ×2 (12:11→20:35)
[2018-05-15] MEDS: Heparin - SQ 10,000 UNITS/ML Vial SQ SCH ×2 (19:17→22:31)
[2018-05-16] MEDS: Heparin - SQ 10,000 UNITS/ML Vial SQ SCH ×3 (05:20→21:39)
[2018-05-16 06:05] LABS: Anion Gap 11 meq/L (5-15); Blood Urea Nitrogen 6 mg/dL (7-18); Calcium 8.2 mg/dL (8.5-10.1); Carbon Dioxide 23.6 meq/L (21.0-32.0); Chloride 101 meq/L (98-107); Glomerular Filtration Rate Greater Than 89 mL/min (>89); Glucose,Random 64 mg/dL (74-106); Magnesium 1.5 mg/dL (1.5-2.5); Potassium 4.7 meq/L (3.5-5.1); Sodium 136 meq/L (136-145)
[2018-05-16] MEDS: Sod Chloride 0.9% Inj 1,000 ML IV.CONT SCH ×2 (06:08→16:56)
[2018-05-16] MEDS ORDERED: Magnesium Sulfate Inj 2 GM in Sodium Chlor 0.9% Inj 96 ML IV.SIG ONE (08:28)
--- NOTE | 2018-05-16 08:31 | P.PN ---
Subjective Interval history: This is a pleasant 63 y/o male with Hepatitis C, Hypertension, Alcohol abuse, was transferred from [facility] for AMS, combative on admission, obvious withdrawal, Hypertensive, Thrombocytopenic 70, Acute kidney injury Creatinine 1.56, Hypocalcemia, CT Head with no acute findings. CXR normal. 05/11: Seen in intensive Care unit, patient continue Lethargic, awake but does not follow commands continue intensive care management has electrolyte derangement replacing and following, continue supportive care. 05/12: Discussed with Miss Quinteros he is more alert today, but continue to need Intensive Care Management Lethargic, but more alert than yesterday, replacing electrolytes and following. 05/13: Discussed with nurse Latanya patient stable, talking, conversant already eating, Improving condition electrolyte derangement and Hypertension with the need for Cardene drip and also for electrolyte replacement 05/14: Stable in his bedroom, now able to eat, continue with Electrolyte derangement replacing and continue with Hypertensive Emergency, increased dosages of Amlodipine to 10 mg daily and Clonidine to 0.2 mg TID also his IV fluids decreased to 42 ml per hour. 05/15: Seen in his bedroom, discussed with nurse Miss HoganEdwige, patient with mild dehydration will give one bolus of NS and continue IV fluids 100 ml per hour, following laboratory for electrolyte derangement, patient is fully alert, but has some confusion. 05/16: Patient stable but continue confused, will need to continue present care, re started Bronchodilator, Lactulose to three times a day, Nicotine patch, discussed with nurse Mr. Acuna, Transfer to Med Surg. no nausea, vomit or diarrhea. Physical Exam Vital signs: Vital Signs 05/15/18 09:00 05/15/18 09:01 05/15/18 10:00 Temperature Pulse Rate 88 88 105 H Respiratory Rate 19 27 H 26 H Blood Pressure 156/76 H 139/96 H Pulse Oximetry 96 90 L 92 L 05/15/18 11:00 05/15/18 12:00 05/15/18 13:00 Temperature 98.7 F Pulse Rate 100 H 89 90 Respiratory Rate 18 17 16 Blood Pressure 142/75 H 150/86 H 162/82 H Pulse Oximetry 100 100 99 05/15/18 14:00 05/15/18 14:01 05/15/18 15:00 Temperature Pulse Rate 89 91 H 99 H Respiratory Rate 17 16 22 Blood Pressure 145/75 H 128/89 Pulse Oximetry 100 100 100 05/15/18 16:00 05/15/18 16:01 05/15/18 17:00 Temperature 98.9 F Pulse Rate 95 H 98 H 88 Respiratory Rate 17 22 17 Blood Pressure 133/95 H 130/70 133/95 H Pulse Oximetry 100 100 100 05/15/18 18:00 05/15/18 19:00 05/15/18 20:00 Temperature 98.9 F Pulse Rate 88 101 H 96 H Respiratory Rate 18 26 H 20 Blood Pressure 159/86 H 159/82 H 161/88 H Pulse Oximetry 97 95 96 05/15/18 22:00 05/16/18 00:00 05/16/18 02:00 Temperature Pulse Rate 106 H 109 H 102 H Respiratory Rate 24 Blood Pressure 163/86 H Pulse Oximetry 97 05/16/18 04:00 05/16/18 06:00 Temperature 98.7 F Pulse Rate 103 H 92 H Respiratory Rate 20 Blood Pressure 145/85 H Pulse Oximetry 98 Intake & Output 05/15/18 05/16/18 05/16/18 18:59 06:59 18:59 Intake Total 4100 / 4100 Output Total 1400 / 1400 Balance 2700 / 2700 Weight 72 kg Intake: IV 4100 / 4100 NS Inj 1,000 ML @ 100 mls/hr IV 1999 / 1999 .CONT .Q10H [facility] Rx#:[id number] Magnesium Sulfate Inj 2 GM In 100 / 100 NS Inj 96 ML @ 50 mls/hr IV.SIG ONCE ONE Rx#:[id number] Output: Urine 1400 / 1400 Other: Date of Last Bowel Movement 05/13/18 05/14/18 # Bowel Movements 0 Narrative: GENERAL: Alert, Confused. CARDIOVASCULAR: Normal rate and regular rhythm without murmurs, gallops, or rubs. tachycardia RESPIRATORY: Breath sounds equal and clear to auscultation bilaterally. GASTROINTESTINAL: Abdomen soft, non-tender, non-distended. Normal active bowel sounds MUSCULOSKELETAL: Extremities without cyanosis, or edema. NEURO: Moves all ext x4 Results - Labs CBC & Chem 7: 05/11/18 04:10 05/16/18 02:57 Laboratory Results - last 24 hr 05/15/18 05/16/18 21:32 02:57 Sodium 136 Potassium 4.7 Chloride 101 Carbon Dioxide 23.6 Anion Gap 11 BUN 6 L Creatinine 0.44 L Estimated GFR Greater than 89 POC Glucose 102 Random Glucose 64 L Calcium 8.2 L Magnesium 1.5 Assessment and Plan - Assessment (1) Alcohol withdrawal Code(s): F10.239 - Alcohol dependence with withdrawal, unspecified Status: Acute (2) NIKUNJ (acute kidney injury) Code(s): N17.9 - Acute kidney failure, unspecified Status: Acute (3) Hypocalcemia Code(s): E83.51 - Hypocalcemia Status: Acute - Plan 1. Alcohol Withdrawal: h/o Alcohol Abuse, tx from [facility] for acute AMS, sent w/ [facility], +active withdrawal. at this time in intensive Care Unit, CIWA protocol, Seizure Precautions, MVT /Thiamine/Folate replacement. continue present care. continue confused at this time. 2. Hepatic Encephalopathy continue management Lactulose to three times a day. 3. Electrolyte derangement replaced and following. Magnesium today 1.5 replaced and following 4. dehydration Improved but will continue IV fluids. 5. Hypertensive Urgency, Cardene was removed, Amlodipine 10 mg daily, Clonidine 0.2 mg TID, added HCTZ 12.5 mg but IV fluids had to be increased again, Improving. 6. Thrombocytopenia improving, will start DVT prophylaxis due to that the patient is not having the activity required. [facility] DVT Prophylaxis: Heparin. Code Status: Full Code. Discussed Condition With: patient and nurse Mr. Acuna. Discharge Planning: Expected in two days. (1) Alcohol withdrawal Qualifiers: Complication of substance-induced condition: with delirium Qualified Code(s) : F10.231 - Alcohol dependence with withdrawal delirium
[2018-05-16] MEDS: guaiFENesin 600 MG ER Tablet PO SCH ×2 (09:36→21:39)
[2018-05-16] MEDS: amLODIPine 5 MG Tablet PO SCH (09:36)
[2018-05-16] MEDS: Senna/Docusate Sodium 8.6/50 MG Tablet PO SCH ×2 (09:36→21:39)
[2018-05-16] MEDS: Magnesium Oxide 400 MG Tablet PO SCH ×2 (16:00→21:38)
[2018-05-17] MEDS: Sod Chloride 0.9% Inj 1,000 ML IV.CONT SCH ×3 (00:05→14:24)
[2018-05-17] MEDS: LORazepam 1 MG Tablet PO PRN ×2 (02:01→06:17)
[2018-05-17] MEDS: Heparin - SQ 10,000 UNITS/ML Vial SQ SCH ×3 (06:16→21:18)
--- NOTE | 2018-05-17 08:32 | P.PN ---
Subjective Interval history: This is a pleasant 63 y/o male with Hepatitis C, Hypertension, Alcohol abuse, was transferred from [facility] for AMS, combative on admission, obvious withdrawal, Hypertensive, Thrombocytopenic 70, Acute kidney injury Creatinine 1.56, Hypocalcemia, CT Head with no acute findings. CXR normal. 05/11: Seen in intensive Care unit, patient continue Lethargic, awake but does not follow commands continue intensive care management has electrolyte derangement replacing and following, continue supportive care. 05/12: Discussed with Miss Quinteros he is more alert today, but continue to need Intensive Care Management Lethargic, but more alert than yesterday, replacing electrolytes and following. 05/13: Discussed with nurse Miss Pelaez patient stable, talking, conversant already eating, Improving condition electrolyte derangement and Hypertension with the need for Cardene drip and also for electrolyte replacement 05/14: Stable in his bedroom, now able to eat, continue with Electrolyte derangement replacing and continue with Hypertensive Emergency, increased dosages of Amlodipine to 10 mg daily and Clonidine to 0.2 mg TID also his IV fluids decreased to 42 ml per hour. 05/15: Seen in his bedroom, discussed with nurse Miss Gibbons, patient with mild dehydration will give one bolus of NS and continue IV fluids 100 ml per hour, following laboratory for electrolyte derangement, patient is fully alert, but has some confusion. 05/16: Patient stable but continue confused, will need to continue present care, re started Bronchodilator, Lactulose to three times a day, Nicotine patch, discussed with nurse Mr. Acuna, Transfer to Med Surg. 05/17: Seen in his bedroom and discussed with nurse Miss Dunbar replaced Magnesium improving his mental condition slowly, continue present care, better electrolyte derangement replaced Magnesium today. Physical Exam Vital signs: Vital Signs 05/16/18 10:00 05/16/18 12:00 05/16/18 14:00 Temperature 98.8 F Pulse Rate 107 H 103 H 103 H Respiratory Rate 20 Blood Pressure 152/80 H Pulse Oximetry 05/16/18 15:48 05/16/18 16:00 05/16/18 18:00 Temperature 98.3 F Pulse Rate 109 H 110 H 105 H Respiratory Rate 18 21 Blood Pressure 143/93 H Pulse Oximetry 05/16/18 19:52 05/16/18 20:00 05/16/18 22:00 Temperature 98.5 F Pulse Rate 98 H 115 H 114 H Respiratory Rate 12 20 Blood Pressure 148/89 H Pulse Oximetry 98 05/17/18 00:00 05/17/18 02:00 05/17/18 03:35 Temperature 98.2 F Pulse Rate 99 H 99 H 101 H Respiratory Rate 24 16 Blood Pressure 148/82 H Pulse Oximetry 100 05/17/18 04:00 05/17/18 06:00 Temperature 98.6 F Pulse Rate 101 H 117 H Respiratory Rate 24 Blood Pressure 154/89 H Pulse Oximetry 100 Intake & Output 05/16/18 05/17/18 05/17/18 18:59 06:59 18:59 Intake Total 1100 / 1100 1000 / 1000 Balance 1100 / 1100 1000 / 1000 Weight 72 kg Intake: IV 1100 / 1100 1000 / 1000 NS Inj 1,000 ML @ 100 mls/hr IV 1000 / 1000 1000 / 1000 .CONT .Q10H [facility] Rx#:[id number] Magnesium Sulfate Inj 2 GM In 100 / 100 NS Inj 96 ML @ 50 mls/hr IV.SIG ONCE ONE Rx#:[id number] Other: Date of Last Bowel Movement 05/13/18 05/13/18 Narrative: GENERAL: Alert, Confused. CARDIOVASCULAR: Normal rate and regular rhythm without murmurs, gallops, or rubs. tachycardia RESPIRATORY: Breath sounds equal and clear to auscultation bilaterally. GASTROINTESTINAL: Abdomen soft, non-tender, non-distended. Normal active bowel sounds MUSCULOSKELETAL: Extremities without cyanosis, or edema. NEURO: Moves all ext x4 Results - Labs CBC & Chem 7: 05/11/18 04:10 05/16/18 02:57 Laboratory Results - last 24 hr 05/16/18 05/16/18 05/16/18 12:30 18:07 21:37 POC Glucose 96 95 82 Magnesium 05/17/18 02:28 POC Glucose Magnesium 1.6 Assessment and Plan - Assessment (1) Alcohol withdrawal Code(s): F10.239 - Alcohol dependence with withdrawal, unspecified Status: Acute (2) NIKUNJ (acute kidney injury) Code(s): N17.9 - Acute kidney failure, unspecified Status: Acute (3) Hypocalcemia Code(s): E83.51 - Hypocalcemia Status: Acute - Plan 1. Alcohol Withdrawal: h/o Alcohol Abuse, tx from [facility] for acute AMS, sent w/ [facility], +active withdrawal. at this time in intensive Care Unit, CIWA protocol, Seizure Precautions, MVT /Thiamine/Folate replacement. continue present care. continue confused at this time. 2. Hepatic Encephalopathy continue management Lactulose to three times a day. 3. Electrolyte derangement replaced and following. Magnesium today 1.6 replaced and following 4. dehydration Improved but will continue IV fluids. 5. Hypertensive Urgency, Cardene was removed, Amlodipine 10 mg daily, Clonidine 0.2 mg TID, added HCTZ 12.5 mg but IV fluids had to be increased again, Improving. 6. Thrombocytopenia improving, will start DVT prophylaxis due to that the patient is not having the activity required. Transfer the patient out of ICU to [facility] floor. DVT Prophylaxis: Heparin. Code Status: Full Code. Discussed Condition With: Patient and nurse Miss Dunbar Discharge Planning: Expected in two days. (1) Alcohol withdrawal Qualifiers: Complication of substance-induced condition: with delirium Qualified Code(s) : F10.231 - Alcohol dependence with withdrawal delirium
[2018-05-17] MEDS ORDERED: Magnesium Sulfate Inj 2 GM in Sodium Chlor 0.9% Inj 96 ML IV.SIG ONE (09:00)
[2018-05-17] MEDS: amLODIPine 5 MG Tablet PO SCH (09:14)
[2018-05-17] MEDS: guaiFENesin 600 MG ER Tablet PO SCH ×2 (09:14→20:35)
[2018-05-17] MEDS: Magnesium Oxide 400 MG Tablet PO SCH ×2 (09:14→20:36)
[2018-05-17] MEDS: Senna/Docusate Sodium 8.6/50 MG Tablet PO SCH ×2 (09:14→20:36)
[2018-05-18] MEDS: LORazepam 1 MG Tablet PO PRN ×4 (00:11→22:18)
[2018-05-18] MEDS: Sod Chloride 0.9% Inj 1,000 ML IV.CONT SCH ×3 (01:05→21:07)
[2018-05-18] MEDS: Heparin - SQ 10,000 UNITS/ML Vial SQ SCH ×3 (05:05→21:11)
[2018-05-18 07:32] LABS: Anion Gap 13 meq/L (5-15); Blood Urea Nitrogen 4 mg/dL (7-18); Calcium 9.1 mg/dL (8.5-10.1); Carbon Dioxide 22.9 meq/L (21.0-32.0); Chloride 101 meq/L (98-107); Glomerular Filtration Rate Greater Than 89 mL/min (>89); Glucose,Random 66 mg/dL (74-106); Magnesium 1.7 mg/dL (1.5-2.5); Potassium 4.3 meq/L (3.5-5.1); Sodium 137 meq/L (136-145)
[2018-05-18] MEDS: Magnesium Oxide 400 MG Tablet PO SCH ×2 (08:32→21:08)
[2018-05-18] MEDS: amLODIPine 5 MG Tablet PO SCH (08:32)
[2018-05-18] MEDS: guaiFENesin 600 MG ER Tablet PO SCH ×2 (08:32→21:08)
[2018-05-18] MEDS: Senna/Docusate Sodium 8.6/50 MG Tablet PO SCH ×2 (08:33→21:08)
[2018-05-18] MEDS ORDERED: Magnesium Sulfate Inj 2 GM in Sodium Chlor 0.9% Inj 96 ML IV.SIG ONE (10:00)
[2018-05-18] MEDS ORDERED: Acetaminophen 325 MG Tablet PO PRN (16:34)
--- NOTE | 2018-05-18 17:07 | P.PN ---
Subjective Interval history: This is a pleasant 63 y/o male with Hepatitis C, Hypertension, Alcohol abuse, was transferred from [facility] for AMS, combative on admission, obvious withdrawal, Hypertensive, Thrombocytopenic 70, Acute kidney injury Creatinine 1.56, Hypocalcemia, CT Head with no acute findings. CXR normal. 05/11: Seen in intensive Care unit, patient continue Lethargic, awake but does not follow commands continue intensive care management has electrolyte derangement replacing and following, continue supportive care. 05/12: Discussed with Miss Quinteros he is more alert today, but continue to need Intensive Care Management Lethargic, but more alert than yesterday, replacing electrolytes and following. 05/13: Discussed with nurse Miss Pelaez patient stable, talking, conversant already eating, Improving condition electrolyte derangement and Hypertension with the need for Cardene drip and also for electrolyte replacement 05/14: Stable in his bedroom, now able to eat, continue with Electrolyte derangement replacing and continue with Hypertensive Emergency, increased dosages of Amlodipine to 10 mg daily and Clonidine to 0.2 mg TID also his IV fluids decreased to 42 ml per hour. 05/15: Seen in his bedroom, discussed with nurse Miss Gibbons, patient with mild dehydration will give one bolus of NS and continue IV fluids 100 ml per hour, following laboratory for electrolyte derangement, patient is fully alert, but has some confusion. 05/16: Patient stable but continue confused, will need to continue present care, re started Bronchodilator, Lactulose to three times a day, Nicotine patch, discussed with nurse Mr. Acuna, Transfer to Med Surg. 05/17: Seen in his bedroom and discussed with nurse Miss Dunbar replaced Magnesium improving his mental condition slowly, continue present care, better electrolyte derangement replaced Magnesium today. 05/18: Stable in his bedroom, continue in restrains, improving slowly his mental condition, giving him Lactulose today for the first time even placed in the chart to be given TID, discussed with nurse Miss Huber no nausea, vomit or diarrhea. has constipation. Physical Exam Vital signs: Vital Signs 05/17/18 18:00 05/17/18 18:01 05/17/18 19:00 Temperature Pulse Rate 85 89 83 Respiratory Rate Blood Pressure 137/77 148/72 H Pulse Oximetry 100 100 100 05/17/18 20:00 05/17/18 20:52 05/17/18 21:00 Temperature 97.7 F Pulse Rate 76 90 92 H Respiratory Rate 16 Blood Pressure 124/67 137/83 Pulse Oximetry 100 100 05/17/18 22:00 05/17/18 23:00 05/18/18 00:00 Temperature 97.7 F Pulse Rate 100 H 90 86 Respiratory Rate Blood Pressure 134/75 134/79 135/80 Pulse Oximetry 100 100 100 05/18/18 01:00 05/18/18 01:01 05/18/18 01:36 Temperature Pulse Rate 88 94 H 96 H Respiratory Rate Blood Pressure 203/87 H 159/87 H Pulse Oximetry 100 100 99 05/18/18 02:00 05/18/18 03:00 05/18/18 03:33 Temperature Pulse Rate 92 H 95 H 99 H Respiratory Rate 18 Blood Pressure 165/77 H 153/90 H Pulse Oximetry 97 100 05/18/18 04:00 05/18/18 06:00 05/18/18 08:00 Temperature 98.4 F 97.3 F L Pulse Rate 107 H 85 95 H Respiratory Rate 16 Blood Pressure 160/86 H 153/75 H Pulse Oximetry 97 99 05/18/18 10:00 05/18/18 10:51 05/18/18 12:00 Temperature 97.7 F Pulse Rate 84 85 104 H Respiratory Rate 20 18 Blood Pressure 125/74 Pulse Oximetry 96 05/18/18 14:00 05/18/18 15:43 05/18/18 16:00 Temperature 99.8 F H Pulse Rate 111 H 113 H 123 H Respiratory Rate 16 22 Blood Pressure 184/84 H Pulse Oximetry 99 Intake & Output 05/17/18 05/18/18 05/18/18 18:59 06:59 18:59 Intake Total 1650 / 1650 1480 / 1480 1100 / 1100 Output Total 1500 / 1500 Balance 150 / 150 1480 / 1480 1100 / 1100 Weight 72 kg Intake: IV 1100 / 1100 1000 / 1000 1100 / 1100 NS Inj 1,000 ML @ 100 mls/hr IV 1000 / 1000 1000 / 1000 1000 / 1000 .CONT .Q10H [facility] Rx#:[id number] Magnesium Sulfate Inj 2 GM In 100 / 100 100 / 100 NS Inj 96 ML @ 50 mls/hr IV.SIG ONCE ONE Rx#:[id number] Oral 550 / 550 480 / 480 Output: Urine 1500 / 1500 Other: # Voids 8 Date of Last Bowel Movement 05/18/18 Narrative: GENERAL: Alert, Confused. CARDIOVASCULAR: Normal rate and regular rhythm without murmurs, gallops, or rubs. tachycardia RESPIRATORY: Breath sounds equal and clear to auscultation bilaterally. GASTROINTESTINAL: Abdomen soft, non-tender, non-distended. Normal active bowel sounds MUSCULOSKELETAL: Extremities without cyanosis, or edema. NEURO: Moves all ext x4 Results - Labs CBC & Chem 7: 05/11/18 04:10 05/18/18 04:06 Laboratory Results - last 24 hr 05/17/18 05/17/18 05/18/18 17:47 22:51 04:06 Sodium 137 Potassium 4.3 Chloride 101 Carbon Dioxide 22.9 Anion Gap 13 BUN 4 L Creatinine 0.39 L Estimated GFR Greater than 89 POC Glucose 102 89 Random Glucose 66 L Calcium 9.1 Magnesium 1.7 05/18/18 05/18/18 05/18/18 07:14 10:34 12:47 Sodium Potassium Chloride Carbon Dioxide Anion Gap BUN Creatinine Estimated GFR POC Glucose 86 110 120 H Random Glucose Calcium Magnesium Assessment and Plan - Assessment (1) Alcohol withdrawal Code(s): F10.239 - Alcohol dependence with withdrawal, unspecified Status: Acute (2) NIKUNJ (acute kidney injury) Code(s): N17.9 - Acute kidney failure, unspecified Status: Acute (3) Hypocalcemia Code(s): E83.51 - Hypocalcemia Status: Acute - Plan 1. Alcohol Withdrawal: h/o Alcohol Abuse, tx from [facility] for acute AMS, sent w/ [facility] Act, +active withdrawal. at this time in intensive Care Unit, CIWA protocol, Seizure Precautions, MVT /Thiamine/Folate replacement. continue present care. continue confused at this time. improving slowly. 2. Hepatic Encephalopathy continue management Lactulose to three times a day. but not receiving his medicine as indicated. 3. Electrolyte derangement replaced and following. Magnesium today 1.7 replaced and following 4. dehydration Improved but will continue IV fluids. 5. Hypertensive Urgency, Cardene was removed, Amlodipine 10 mg daily, Clonidine 0.2 mg TID, added HCTZ 12.5 mg but IV fluids had to be increased again, better in am and again increased in the afternoon. 6. Thrombocytopenia improving, will start DVT prophylaxis due to that the patient is not having the activity required. Transfer the patient out of ICU to [facility] floor. DVT Prophylaxis: Heparin. Code Status: Full Code. Discussed Condition With: patient and nurse. Discharge Planning: Improving slowly. (1) Alcohol withdrawal Qualifiers: Complication of substance-induced condition: with delirium Qualified Code(s) : F10.231 - Alcohol dependence with withdrawal delirium
[2018-05-19] MEDS: Sod Chloride 0.9% Inj 1,000 ML IV.CONT SCH ×2 (03:53→13:49)
[2018-05-19] MEDS: Heparin - SQ 10,000 UNITS/ML Vial SQ SCH ×3 (05:16→21:12)
[2018-05-19] MEDS: amLODIPine 5 MG Tablet PO SCH (09:19)
[2018-05-19] MEDS: Senna/Docusate Sodium 8.6/50 MG Tablet PO SCH ×2 (09:19→20:41)
[2018-05-19] MEDS: guaiFENesin 600 MG ER Tablet PO SCH ×2 (09:19→20:41)
--- NOTE | 2018-05-19 15:23 | P.PNIM ---
Subjective Interval history: The patient wanted to know why he was in the hospital. He had questions about the Philip act. He was still in restraints. He says he does not use drugs. Discussed with nursing. Physical Exam Vital signs: Vital Signs 05/18/18 15:43 05/18/18 16:00 05/18/18 18:00 Temperature 99.8 F H Pulse Rate 113 H 123 H 114 H Respiratory Rate 16 22 Blood Pressure 184/84 H Pulse Oximetry 99 05/18/18 19:57 05/18/18 20:00 05/19/18 00:00 Temperature 99.4 F 97.4 F L Pulse Rate 102 H 104 H 106 H Respiratory Rate 20 18 20 Blood Pressure 106/63 145/98 H Pulse Oximetry 97 96 05/19/18 03:42 05/19/18 04:00 05/19/18 08:00 Temperature 98.2 F 98.4 F Pulse Rate 105 H 100 H 94 H Respiratory Rate 18 20 16 Blood Pressure 134/69 151/79 H Pulse Oximetry 100 98 05/19/18 09:22 05/19/18 12:00 Temperature 98.5 F Pulse Rate 85 83 Respiratory Rate 16 18 Blood Pressure 148/72 H Pulse Oximetry 96 98 Intake & Output 05/18/18 05/19/18 05/19/18 18:59 06:59 18:59 Intake Total 1700 / 1700 1000 / 1000 1000 / 1000 Output Total 375 / 375 Balance 1325 / 1325 1000 / 1000 1000 / 1000 Weight 73.1 kg Intake: IV 1100 / 1100 1000 / 1000 1000 / 1000 NS Inj 1,000 ML @ 100 mls/hr IV 1000 / 1000 1000 / 1000 1000 / 1000 .CONT .Q10H SUSAN Rx#:[id number] Magnesium Sulfate Inj 2 GM In 100 / 100 NS Inj 96 ML @ 50 mls/hr IV.SIG ONCE ONE Rx#:[id number] Oral 600 / 600 Output: Urine 375 / 375 Other: # Urine Diapers 4 Date of Last Bowel Movement 05/18/18 05/18/18 # Bowel Movements 1 Narrative: GENERAL: No distress CARDIOVASCULAR: Normal rate and regular rhythm without murmurs, gallops, or rubs. RESPIRATORY: Breath sounds equal and clear to auscultation bilaterally. GASTROINTESTINAL: Abdomen soft, non-tender, non-distended. Normal active bowel sounds MUSCULOSKELETAL: Extremities without cyanosis, or edema. NEURO: Moves all ext x4 PSYCH: Anxious Results - Labs CBC & Chem 7: 05/11/18 04:10 05/18/18 04:06 Laboratory Results - last 24 hr 05/18/18 05/18/18 05/19/18 17:14 21:42 07:35 POC Glucose 128 H 111 H 116 H 05/19/18 12:25 POC Glucose 115 H Assessment and Plan - Assessment (1) Alcohol withdrawal Code(s): F10.239 - Alcohol dependence with withdrawal, unspecified Status: Acute (2) NIKUNJ (acute kidney injury) Code(s): N17.9 - Acute kidney failure, unspecified Status: Acute (3) Hypocalcemia Code(s): E83.51 - Hypocalcemia Status: Acute - Plan Alcohol Withdrawal: h/o Alcohol Abuse, tx from [facility] for acute AMS, sent w/ Philip Act, +active withdrawal. Initially in Intensive Care Unit, CIWA protocol, Seizure Precautions, MVT/ Thiamine/Folate replacement. -cessation instruction. Hepatic Encephalopathy -continue management, lactulose increased to three times a day. -PT/OT/ST. Hypertensive Urgenc S/p Cardene. -Amlodipine 10 mg daily, Clonidine 0.2 mg TID, added HCTZ 12.5 mg. Improved. Thrombocytopenia Improving. -follow CBC. DVT Prophylaxis: Heparin. Discharge Planning: Will likely need placement (1) Alcohol withdrawal Qualifiers: Complication of substance-induced condition: with delirium Qualified Code(s) : F10.231 - Alcohol dependence with withdrawal delirium
[2018-05-20] MEDS: Heparin - SQ 10,000 UNITS/ML Vial SQ SCH ×3 (06:40→22:27)
[2018-05-20] MEDS: amLODIPine 5 MG Tablet PO SCH (09:40)
[2018-05-20] MEDS: guaiFENesin 600 MG ER Tablet PO SCH ×2 (09:40→20:34)
[2018-05-20] MEDS: Senna/Docusate Sodium 8.6/50 MG Tablet PO SCH ×2 (09:40→20:34)
[2018-05-20] MEDS: QUEtiapine 25 MG Tablet PO SCH ×2 (09:41→20:34)
--- NOTE | 2018-05-20 10:44 | P.PNIM ---
Subjective Interval history: The patient was resting comfortably in bed. His family was at the bedside. They seem to be interested in discharging home in the morning. They said the patient would have plenty of family support. His family has taken away the alcohol bottles. Discussed with nursing who reported that the patient was acting very agitated this morning. Physical Exam Vital signs: Vital Signs 05/19/18 12:00 05/19/18 15:42 05/19/18 16:00 Temperature 98.5 F 98.4 F Pulse Rate 95 H 96 H 99 H Respiratory Rate 18 16 18 Blood Pressure 148/72 H 140/68 Pulse Oximetry 98 98 05/19/18 20:00 05/19/18 21:58 05/20/18 00:00 Temperature 98.0 F Pulse Rate 107 H 56 L 94 H Respiratory Rate 21 18 18 Blood Pressure 126/82 149/83 H Pulse Oximetry 90 L 92 L 05/20/18 04:00 05/20/18 08:00 Temperature 97.3 F L 97.5 F L Pulse Rate 79 89 Respiratory Rate 19 17 Blood Pressure 151/80 H 117/74 Pulse Oximetry 94 L 93 L Intake & Output 05/19/18 05/20/18 05/20/18 18:59 06:59 18:59 Intake Total 1420 / 1420 500 / 500 Balance 1420 / 1420 500 / 500 Weight 71.4 kg Intake: IV 1000 / 1000 500 / 500 NS Inj 1,000 ML @ 100 mls/hr IV 1000 / 1000 500 / 500 .CONT .Q10H SUSAN Rx#:[id number] Oral 420 / 420 Other: # Voids 4 Date of Last Bowel Movement 05/18/18 # Bowel Movements 1 Narrative: GENERAL: No distress CARDIOVASCULAR: Normal rate and regular rhythm without murmurs, gallops, or rubs. RESPIRATORY: Breath sounds equal and clear to auscultation bilaterally. GASTROINTESTINAL: Abdomen soft, non-tender, non-distended. Normal active bowel sounds. MUSCULOSKELETAL: Extremities without cyanosis, or edema. NEURO: Moves all ext x4. Confused. Results - Labs CBC & Chem 7: 05/11/18 04:10 05/18/18 04:06 Laboratory Results - last 24 hr 05/19/18 05/19/18 05/19/18 12:25 16:35 19:56 POC Glucose 115 H 119 H 147 H 05/20/18 08:06 POC Glucose 109 Assessment and Plan - Assessment (1) Alcohol withdrawal Code(s): F10.239 - Alcohol dependence with withdrawal, unspecified Status: Acute (2) NIKUNJ (acute kidney injury) Code(s): N17.9 - Acute kidney failure, unspecified Status: Acute (3) Hypocalcemia Code(s): E83.51 - Hypocalcemia Status: Acute - Plan Alcohol Withdrawal: h/o Alcohol Abuse, tx from [facility] for acute AMS, sent w/ Philip Act, +active withdrawal. The patient is a binge drinker. Initially in Intensive Care Unit, CIWA protocol, Seizure Precautions, MVT/ Thiamine/Folate replacement. -cessation instruction. -concern for Wernicke's encephalopathy. Start IV thiamine 500 mg 3 times daily. Hepatic Encephalopathy -continue management, lactulose increased to three times a day. -Treatment with IV thiamine as above. -PT/OT/ST. -PO Seroquel for agitation. Check an EKG. Hypertensive Urgenc S/p Cardene. -Amlodipine 10 mg daily, Clonidine 0.2 mg TID, added HCTZ 12.5 mg. Improved. Thrombocytopenia Improving. -follow CBC as needed. DVT Prophylaxis: Heparin. Discharge Planning: Family will like to take him home in the morning. (1) Alcohol withdrawal Qualifiers: Complication of substance-induced condition: with delirium Qualified Code(s) : F10.231 - Alcohol dependence with withdrawal delirium
[2018-05-20] MEDS: Thiamine Inj 500 MG in Sodium Chlor 0.9% Inj 250 ML IV.SIG SCH ×2 (12:26→20:33)
--- NOTE | 2018-05-20 19:13 | XR ---
EXAM DATE: 05/20/2018 7:07 PM EDT AGE/SEX: 63 years / Male INDICATIONS: Shortness of breath CLINICAL DATA: This is the patient's initial encounter. Patient reports that signs and symptoms have been present for 1 day and indicates a pain score of 0/10. MEDICAL/SURGICAL HISTORY: None. None. COMPARISON: [facility] – [place], [place], CHEST 1V SINGLE AP, 05/09/2018. . FINDINGS: The heart size is normal. There is hazy density seen in the mid and lower left chest. The right lung is clear. A significant effusion is not seen. CONCLUSION: Mid and lower left lung consolidation or atelectasis. Electronically signed by: Rupert Chaudhry MD 05/20/2018 7:12 PM EDT
[2018-05-21] MEDS: Thiamine Inj 500 MG in Sodium Chlor 0.9% Inj 250 ML IV.SIG SCH ×3 (05:09→20:52)
[2018-05-21] MEDS: Heparin - SQ 10,000 UNITS/ML Vial SQ SCH ×3 (05:34→22:40)
[2018-05-21] MEDS: Senna/Docusate Sodium 8.6/50 MG Tablet PO SCH ×2 (10:00→20:52)
[2018-05-21] MEDS: amLODIPine 5 MG Tablet PO SCH (10:00)
[2018-05-21] MEDS: guaiFENesin 600 MG ER Tablet PO SCH ×2 (10:00→20:51)
[2018-05-21] MEDS: QUEtiapine 25 MG Tablet PO SCH ×2 (10:00→20:52)
--- NOTE | 2018-05-21 13:22 | P.PNIM ---
Subjective Interval history: The patient was confused and in restraints. He did not indicate any acute complaints. Discussed with nursing. Physical Exam Vital signs: Vital Signs 05/20/18 15:59 05/20/18 16:00 05/20/18 20:00 Temperature 98.4 F 98.2 F Pulse Rate 97 H 100 H 101 H Respiratory Rate 20 17 18 Blood Pressure 123/67 124/73 Pulse Oximetry 96 97 05/20/18 20:10 Temperature Pulse Rate 100 H Respiratory Rate 19 Blood Pressure Pulse Oximetry Intake & Output 05/20/18 05/21/18 05/21/18 18:59 06:59 18:59 Intake Total 615 / 615 495 / 495 Output Total 600 / 600 Balance 615 / 615 -105 / -105 Weight 72.4 kg Intake: IV 255 / 255 255 / 255 Thiamine Inj 500 MG In NS Inj 255 / 255 255 / 255 250 ML @ 62.5 mls/hr IV.SIG Q8H SUSAN Rx#:[id number] Oral 360 / 360 240 / 240 Output: Urine 600 / 600 Urine/Stool Mix 0 / 0 Other: # Incontinent Voids 3 # Bowel Movements 0 Narrative: GENERAL: No distress CARDIOVASCULAR: Normal rate and regular rhythm without murmurs, gallops, or rubs. RESPIRATORY: Breath sounds equal and clear to auscultation bilaterally. GASTROINTESTINAL: Abdomen soft, non-tender, non-distended. Normal active bowel sounds. MUSCULOSKELETAL: Extremities without cyanosis, or edema. NEURO: Moves all ext x4. Confused. Results - Labs CBC & Chem 7: 05/11/18 04:10 05/18/18 04:06 Laboratory Results - last 24 hr 05/20/18 17:20 POC Glucose 155 H - Imaging Impressions Chest X-Ray 05/20/18 14:21 CONCLUSION: Mid and lower left lung consolidation or atelectasis. Assessment and Plan - Assessment (1) Alcohol withdrawal Code(s): F10.239 - Alcohol dependence with withdrawal, unspecified Status: Acute (2) NIKUNJ (acute kidney injury) Code(s): N17.9 - Acute kidney failure, unspecified Status: Acute (3) Hypocalcemia Code(s): E83.51 - Hypocalcemia Status: Acute - Plan Alcohol Withdrawal: h/o Alcohol Abuse, tx from [facility] for acute AMS, sent w/ Philip Act, +active withdrawal. The patient is a binge drinker. Initially in Intensive Care Unit, CIWA protocol, Seizure Precautions, MVT/ Thiamine/Folate replacement. -cessation instruction. -concern for Wernicke's encephalopathy. Started IV thiamine 500 mg 3 times daily 05/20. Would change to 250 mg IV daily 05/22. -check B12 and vitamin D level. Hepatic Encephalopathy -continue management, lactulose increased to three times a day. -Treatment with IV thiamine as above. -PT/OT/ST. -PO Seroquel for agitation. Check an EKG. Hypertensive Urgency S/p Cardene. -Amlodipine 10 mg daily, Clonidine 0.2 mg TID, added HCTZ 12.5 mg. Improved. Thrombocytopenia Improving. -follow CBC as needed. Hypoxemia Pt had a desaturation event 05/20. CXR unremarkable. Pt currently breathing well without any acute complaints. -monitor. DVT Prophylaxis: Heparin. Discharge Planning: Family would like to take him home. The pt is currently too confused and in restraints. He may benefit from rehab. If improves, consider d/c home with [facility] in 1-2 days. (1) Alcohol withdrawal Qualifiers: Complication of substance-induced condition: with delirium Qualified Code(s) : F10.231 - Alcohol dependence with withdrawal delirium
[2018-05-21] MEDS ORDERED: Haloperidol Inj 5 MG/ML Ampul IV.PUSH PRN (22:46)
[2018-05-21] MEDS ORDERED: LORazepam 1 MG Tablet PO PRN (22:46)
[2018-05-22] MEDS: Thiamine Inj 500 MG in Sodium Chlor 0.9% Inj 250 ML IV.SIG SCH ×3 (03:43→20:35)
[2018-05-22 05:31] LABS: Baso # (Auto) 0.1 th/mm3 (0.0-0.2); Baso % (Auto) 0.3 % (0.0-2.0); Eos # (Auto) 0.1 th/mm3 (0.0-0.4); Eos % (Auto) 0.4 % (0.0-4.0); Hematocrit 32.9 % (39.0-51.0); Hemoglobin 11.1 gm/dL (13.0-17.0); Lymph # (Auto) 0.9 th/mm3 (1.0-4.8); Mean Corpuscular HGB Conc 33.8 % (32.0-36.0); Mean Corpuscular Hemoglobin 32.2 pg (27.0-34.0); Mean Corpuscular Volume 95.5 fL (80.0-100.0); Mean Platelet Volume 7.1 fL (7.0-11.0); Mono % (Auto) 10.5 % (0.0-8.0); Neut # (Auto) 15.7 th/mm3 (1.8-7.7); Neut % (Auto) 83.8 % (16.0-70.0); Platelet Count 427 th/mm3 (150-450); Red Blood Count 3.45 mil/mm3 (4.50-5.90); Red Cell Distribution Width 14.9 % (11.6-17.2); White Blood Count 18.8 th/mm3 (4.0-11.0)
[2018-05-22 06:00] LABS: Anion Gap 11 meq/L (5-15); Blood Urea Nitrogen 8 mg/dL (7-18); Calcium 8.8 mg/dL (8.5-10.1); Carbon Dioxide 27.4 meq/L (21.0-32.0); Chloride 97 meq/L (98-107); Glomerular Filtration Rate Greater Than 89 mL/min (>89); Glucose,Random 101 mg/dL (74-106); Potassium 3.5 meq/L (3.5-5.1); Sodium 135 meq/L (136-145)
[2018-05-22] MEDS: Heparin - SQ 10,000 UNITS/ML Vial SQ SCH ×3 (06:00→22:33)
[2018-05-22] MEDS: amLODIPine 5 MG Tablet PO SCH (09:17)
[2018-05-22] MEDS: guaiFENesin 600 MG ER Tablet PO SCH ×2 (09:17→20:36)
[2018-05-22] MEDS: QUEtiapine 25 MG Tablet PO SCH ×2 (09:17→20:36)
[2018-05-22] MEDS: Senna/Docusate Sodium 8.6/50 MG Tablet PO SCH ×2 (09:17→20:35)
--- NOTE | 2018-05-22 15:55 | P.PNIM ---
Subjective Interval history: Patient remains confused at baseline. He appears in no acute distress and has no new complaints. Physical Exam Vital signs: Vital Signs 05/21/18 16:00 05/21/18 20:00 05/22/18 00:00 Temperature 97.4 F L 98.4 F 98 F Pulse Rate 117 H 145 H 130 H Respiratory Rate 17 18 18 Blood Pressure 141/94 H 161/91 H 145/86 H Pulse Oximetry 93 L 93 L 95 05/22/18 04:00 05/22/18 08:00 05/22/18 12:00 Temperature 97.4 F L 97.9 F Pulse Rate 87 78 91 H Respiratory Rate 18 18 Blood Pressure 128/76 116/71 Pulse Oximetry 95 96 Intake & Output 05/21/18 05/22/18 05/22/18 18:59 06:59 18:59 Intake Total 990 / 990 255 / 255 255 / 255 Output Total 200 / 200 Balance 790 / 790 255 / 255 255 / 255 Weight 70.8 kg Intake: IV 510 / 510 255 / 255 255 / 255 Thiamine Inj 500 MG In NS Inj 510 / 510 255 / 255 255 / 255 250 ML @ 62.5 mls/hr IV.SIG Q8H SUSAN Rx#:[id number] Oral 480 / 480 0 / 0 Output: Urine 200 / 200 Other: # Voids 3 # Incontinent Voids 2 Date of Last Bowel Movement 05/18/18 # Bowel Movements 0 0 Narrative: GENERAL: Awake, pleasant, but disoriented, no acute distress SKIN: Warm and dry. No rashes HEAD: Atruamtic, normocephalic. EYES: No scleral icterus. No injection or drainage. ENT: Moist mucous membranes, patent nares, no erythema of oropharynx. NECK: Supple, trachea midline. No JVD or lymphadenopathy. Normal thyroid. CARDIOVASCULAR: Borderline sinus tachycardia. No murmurs, gallops, or rubs. RESPIRATORY: Breath sounds clear equal bilaterally. No crackles or wheezes. No accessory muscle use. GASTROINTESTINAL: Abdomen soft, non-tender, nondistended, normal active bowel sounds MUSCULOSKELETAL: No cyanosis, or edema. NEURO: CN II-XII grossly intact, no focal deficits, no slurring of speech Results - Labs CBC & Chem 7: 05/22/18 04:41 05/22/18 04:41 Laboratory Results - last 24 hr 05/21/18 05/21/18 05/21/18 17:04 17:08 19:39 WBC RBC Hgb Hct MCV MCH MCHC RDW Plt Count MPV Neut % (Auto) Lymph % (Auto) [place] % (Auto) Eos % (Auto) Baso % (Auto) Neut # (Auto) Lymph # (Auto) [place] # (Auto) Eos # (Auto) Baso # (Auto) WBC Differential Differential Comment Sodium Potassium Chloride Carbon Dioxide Anion Gap BUN Creatinine Estimated GFR POC Glucose 128 H 169 H Random Glucose Calcium Vitamin B12 Greater than 2000 H Vitamin D 25-Hydroxy 10.9 L 05/22/18 05/22/18 04:41 04:41 WBC 18.8 H RBC 3.45 L Hgb 11.1 L Hct 32.9 L MCV 95.5 MCH 32.2 MCHC 33.8 RDW 14.9 Plt Count 427 D MPV 7.1 Neut % (Auto) 83.8 H Lymph % (Auto) 5.0 L [place] % (Auto) 10.5 H Eos % (Auto) 0.4 Baso % (Auto) 0.3 Neut # (Auto) 15.7 H Lymph # (Auto) 0.9 L [place] # (Auto) 2.0 H Eos # (Auto) 0.1 Baso # (Auto) 0.1 WBC Differential . Differential Comment Auto diff final Sodium 135 L Potassium 3.5 Chloride 97 L Carbon Dioxide 27.4 Anion Gap 11 BUN 8 Creatinine 0.62 Estimated GFR Greater than 89 POC Glucose Random Glucose 101 Calcium 8.8 Vitamin B12 Vitamin D 25-Hydroxy Assessment and Plan - Assessment (1) Alcohol withdrawal Code(s): F10.239 - Alcohol dependence with withdrawal, unspecified Status: Acute (2) NIKUNJ (acute kidney injury) Code(s): N17.9 - Acute kidney failure, unspecified Status: Acute (3) Hypocalcemia Code(s): E83.51 - Hypocalcemia Status: Acute - Plan Alcohol Withdrawal, S/P delirium tremens h/o Alcohol Abuse, tx from [facility] for acute AMS, sent w/ Philip Act, + active withdrawal. Initially in Intensive Care Unit, CIWA protocol, Seizure Precautions, MVT/ Thiamine/Folate replacement. Continue treatment for Wernicke's encephalopathy. Started IV thiamine 500 mg 3 times daily 05/20. Would change to 250 mg IV daily 05/22. Hepatic Encephalopathy continue management, lactulose increased to three times a day. Continue treatment with IV thiamine as above. Continue PT/OT/ST. Continue PO Seroquel for agitation. Follow ammonia level Check urinalysis for other causes of slightly increased confusion today Hypertensive Urgency Continue amlodipine 10 mg daily, Clonidine 0.2 mg TID, added HCTZ 12.5 mg. Improved. Thrombocytopenia Follow with occasional CBC, improving Occasional hypoxemia Pt had a desaturation event overnight 05/20, not distressed. Consider sleep apnea DVT Prophylaxis Heparin (1) Alcohol withdrawal Qualifiers: Complication of substance-induced condition: with delirium Qualified Code(s) : F10.231 - Alcohol dependence with withdrawal delirium
[2018-05-23] MEDS: Thiamine Inj 500 MG in Sodium Chlor 0.9% Inj 250 ML IV.SIG SCH ×3 (03:58→20:38)
[2018-05-23] MEDS: Heparin - SQ 10,000 UNITS/ML Vial SQ SCH ×3 (05:53→22:14)
[2018-05-23 07:38] LABS: Anion Gap 13 meq/L (5-15); Blood Urea Nitrogen 8 mg/dL (7-18); Calcium 8.6 mg/dL (8.5-10.1); Carbon Dioxide 25.9 meq/L (21.0-32.0); Chloride 100 meq/L (98-107); Glomerular Filtration Rate Greater Than 89 mL/min (>89); Glucose,Random 98 mg/dL (74-106); Potassium 3.3 meq/L (3.5-5.1); Sodium 139 meq/L (136-145)
[2018-05-23] MEDS: QUEtiapine 25 MG Tablet PO SCH ×2 (08:09→20:32)
[2018-05-23] MEDS: guaiFENesin 600 MG ER Tablet PO SCH ×2 (08:09→20:32)
[2018-05-23] MEDS: Senna/Docusate Sodium 8.6/50 MG Tablet PO SCH ×2 (08:09→20:32)
[2018-05-23] MEDS: amLODIPine 5 MG Tablet PO SCH (08:09)
[2018-05-23 13:04] LABS: Bilirubin,Urine Negative (Negative); Clarity,Urine Clear (Clear); Color,Urine Yellow (Yellw/Straw); Glucose,Urine (UA) Negative (Negative); Hyaline Casts,Urine 3 /lpf (0-3); Leukocyte Esterase,Urine Negative (Negative); Mucus,Urine Few /lpf (Occasional); Nitrite,Urine Negative (Negative); Specific Gravity,Urine 1.013 (1.002-1.035)
--- NOTE | 2018-05-23 15:32 | P.PNIM ---
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 Conversation with him his full of confabulations. Physical Exam Vital signs: Vital Signs 05/22/18 16:00 05/22/18 21:50 05/23/18 00:00 Temperature 97.8 F 98.2 F 97.5 F L Pulse Rate 90 107 H 74 Respiratory Rate 18 18 18 Blood Pressure 169/99 H 141/74 H 111/69 Pulse Oximetry 94 L 98 98 05/23/18 04:00 05/23/18 08:00 05/23/18 08:17 Temperature 97.4 F L 97.5 F L Pulse Rate 80 79 Respiratory Rate 18 20 Blood Pressure 128/78 112/68 Pulse Oximetry 94 L 93 L 94 L Intake & Output 05/22/18 05/23/18 05/23/18 18:59 06:59 18:59 Intake Total 510 / 510 255 / 255 255 / 255 Output Total 400 / 400 Balance 510 / 510 255 / 255 -145 / -145 Weight 71.7 kg Intake: IV 510 / 510 255 / 255 255 / 255 Thiamine Inj 500 MG In NS Inj 510 / 510 255 / 255 255 / 255 250 ML @ 62.5 mls/hr IV.SIG Q8H SUSAN Rx#:[id number] Oral 0 / 0 Output: Urine 400 / 400 Other: # Voids 2 Date of Last Bowel Movement 05/18/18 # Bowel Movements 0 Narrative: GENERAL: Awake, pleasant, but disoriented, no acute distress SKIN: Warm and dry. No rashes HEAD: Atruamtic, normocephalic. EYES: No scleral icterus. No injection or drainage. ENT: Moist mucous membranes, patent nares, no erythema of oropharynx. NECK: Supple, trachea midline. No JVD or lymphadenopathy. Normal thyroid. CARDIOVASCULAR: Borderline sinus tachycardia. No murmurs, gallops, or rubs. RESPIRATORY: Breath sounds clear equal bilaterally. No crackles or wheezes. No accessory muscle use. GASTROINTESTINAL: Abdomen soft, non-tender, nondistended, normal active bowel sounds MUSCULOSKELETAL: No cyanosis, or edema. NEURO: CN II-XII grossly intact, no focal deficits, no slurring of speech Results - Labs CBC & Chem 7: 05/22/18 04:41 05/23/18 06:56 Laboratory Results - last 24 hr 05/23/18 05/23/18 05/23/18 06:56 06:56 08:40 Sodium 139 Potassium 3.3 L Chloride 100 Carbon Dioxide 25.9 Anion Gap 13 BUN 8 Creatinine 0.53 L Estimated GFR Greater than 89 Random Glucose 98 Calcium 8.6 Ammonia 34 H Urine Color Yellow Urine Clarity Clear Urine pH 5.0 Ur Specific [place] 1.013 Urine Protein 100 H Urine Glucose (UA) Negative Urine Ketones Negative Urine Occult Blood Small H Urine Nitrate Negative Urine Bilirubin Negative Urine Urobilinogen Less than 2 Ur Leukocyte Esterase Negative Urine RBC 4 H Urine WBC 1 Hyaline Casts 3 Urine Mucus Few H Micro UA Comment Culture not ind Ur Microscopic Review Not Reportable Urine Culture Comments Culture not ind Assessment and Plan - Assessment (1) Alcohol withdrawal Code(s): F10.239 - Alcohol dependence with withdrawal, unspecified Status: Acute (2) NIKUNJ (acute kidney injury) Code(s): N17.9 - Acute kidney failure, unspecified Status: Acute (3) Hypocalcemia Code(s): E83.51 - Hypocalcemia Status: Acute - Plan Alcohol Withdrawal, S/P delirium tremens h/o Alcohol Abuse, tx from [facility] for acute AMS, sent w/ Philip Act, + active withdrawal. Initially in Intensive Care Unit, CIWA protocol, Seizure Precautions, MVT/ Thiamine/Folate replacement. Continue treatment for Wernicke's encephalopathy. Continue IV thiamine 500 mg 3 times daily, started 05/20. Hepatic Encephalopathy continue management, lactulose increased to three times a day. Continue treatment with IV thiamine as above. Continue PT/OT/ST. Continue PO Seroquel for agitation. Ammonia level slightly elevated but not high enough to cause this level of mental impairment Urine was clean Neurology consult pending to assist with delineation of diagnosis Hypertensive Urgency Continue amlodipine 10 mg daily, Clonidine 0.2 mg TID, added HCTZ 12.5 mg. Improved. Thrombocytopenia Follow with occasional CBC, improving Occasional hypoxemia Pt had a desaturation event overnight 05/20, not distressed. Consider sleep apnea DVT Prophylaxis Heparin (1) Alcohol withdrawal Qualifiers: Complication of substance-induced condition: with delirium Qualified Code(s) : F10.231 - Alcohol dependence with withdrawal delirium
[2018-05-24] MEDS: Thiamine Inj 500 MG in Sodium Chlor 0.9% Inj 250 ML IV.SIG SCH ×2 (03:26→19:24)
[2018-05-24] MEDS: Heparin - SQ 10,000 UNITS/ML Vial SQ SCH ×3 (05:26→22:05)
--- NOTE | 2018-05-24 05:36 | MB ---
cc: Juan Manuel Aggarwal MD, PhD DATE: 05/23/2018 REASON FOR CONSULTATION: Possible Wernicke encephalopathy. HISTORY OF PRESENT ILLNESS: Mr. Esteves is a 63-year-old man with a history of heavy alcohol abuse, who was transferred from the [facility] because of alteration in mental status and confusion. He was initially on thiamine. He began to develop symptoms of alcohol withdrawal and possible Wernicke encephalopathy. He has been started on a high dose thiamine regimen for Wernicke encephalopathy. NEUROLOGICAL EXAMINATION: VITAL SIGNS: Blood pressure is 125/67, pulse 86, respiratory rate 20, temperature 97.2 degrees. HIGHER CORTICAL FUNCTION: He is alert. He is oriented to the year and month and to the place. Recall is 0/3 objects in 3 minutes. He does confabulate at times. His remote memory is poor. He is very confused and disoriented and combative. He follows commands. Calculations intact. Cranial nerves normal. Motor exam: He has normal strength and tone of all groups. There is no focal deficit. DIAGNOSTIC DATA: CT scan of the head shows atrophy, no acute change. LABORATORY DATA: White count 18,800, hemoglobin 11.1, hematocrit 32.9%, platelet count 427,000. His PT 10.9, INR 1.1, aPTT 28.3. Sodium is 139, potassium 3.3, chloride 100, CO2 25.9, BUN is 8, creatinine 0.53. Ammonia 34. B12 greater than 2000. UA: pH is 5, specific gravity 1.03, protein 100, 1 WBC, 4 RBCs are seen. IMPRESSION: Probable Wernicke encephalopathy. I agree with the high dose thiamine protocol, 500 mg IV t.i.d. for 2 consecutive days, then 250 mg IV once daily for an additional 5 days. We will also obtain an MRI of the brain for further evaluation. Juan Manuel Aggarwal MD, PhD RENITA/tyler , 04:38 PM , 04:45 PM
[2018-05-24] MEDS: guaiFENesin 600 MG ER Tablet PO SCH ×2 (08:45→22:06)
[2018-05-24] MEDS: QUEtiapine 25 MG Tablet PO SCH ×2 (08:45→22:06)
[2018-05-24] MEDS: amLODIPine 5 MG Tablet PO SCH (08:45)
[2018-05-24] MEDS: Senna/Docusate Sodium 8.6/50 MG Tablet PO SCH ×2 (08:46→22:06)
--- NOTE | 2018-05-24 12:37 | P.PNIM ---
Subjective Interval history: Patient is at his baseline, a mixture of orientation and disorientation. He had some agitation overnight, pulling on his restraints, and staff had to give him 2 doses of Ativan. Physical Exam Vital signs: Vital Signs 05/23/18 16:00 05/23/18 20:00 05/24/18 00:00 Temperature 98.2 F 97.9 F Pulse Rate 103 H 111 H 84 Respiratory Rate 20 21 19 Blood Pressure 150/77 H 118/76 138/84 Pulse Oximetry 93 L 96 94 L 05/24/18 04:00 05/24/18 07:54 05/24/18 08:00 Temperature 97.8 F 97.2 F L Pulse Rate 90 69 Respiratory Rate 19 20 Blood Pressure 147/87 H 134/70 Pulse Oximetry 94 L 94 L 96 Intake & Output 05/23/18 05/24/18 05/24/18 18:59 06:59 18:59 Intake Total 510 / 510 1035 / 1035 255 / 255 Output Total 400 / 400 400 / 400 Balance 110 / 110 635 / 635 255 / 255 Weight 72.4 kg Intake: IV 510 / 510 255 / 255 255 / 255 Thiamine Inj 500 MG In NS Inj 510 / 510 255 / 255 255 / 255 250 ML @ 62.5 mls/hr IV.SIG Q8H SUSAN Rx#:[id number] Oral Trauma Intake Amount 750 / 750 Output: Urine 400 / 400 400 / 400 Stool 0 / 0 Urine/Stool Mix 0 / 0 Other: # Voids 2 # Incontinent Voids 2 # Urine Diapers 4 Date of Last Bowel Movement 05/18/18 # Bowel Movements 0 # Incontinent Bowel Movements 0 Narrative: GENERAL: Awake, pleasant, but disoriented, no acute distress SKIN: Warm and dry. No rashes HEAD: Atruamtic, normocephalic. EYES: No scleral icterus. No injection or drainage. ENT: Moist mucous membranes, patent nares, no erythema of oropharynx. NECK: Supple, trachea midline. No JVD or lymphadenopathy. Normal thyroid. CARDIOVASCULAR: Borderline sinus tachycardia. No murmurs, gallops, or rubs. RESPIRATORY: Breath sounds clear equal bilaterally. No crackles or wheezes. No accessory muscle use. GASTROINTESTINAL: Abdomen soft, non-tender, nondistended, normal active bowel sounds MUSCULOSKELETAL: No cyanosis, or edema. NEURO: CN II-XII grossly intact, no focal deficits, no slurring of speech Results - Labs CBC & Chem 7: 05/22/18 04:41 05/23/18 06:56 Laboratory Results - last 24 hr 05/23/18 08:40 Urine Color Yellow Urine Clarity Clear Urine pH 5.0 Ur Specific [place] 1.013 Urine Protein 100 H Urine Glucose (UA) Negative Urine Ketones Negative Urine Occult Blood Small H Urine Nitrate Negative Urine Bilirubin Negative Urine Urobilinogen Less than 2 Ur Leukocyte Esterase Negative Urine RBC 4 H Urine WBC 1 Hyaline Casts 3 Urine Mucus Few H Micro UA Comment Culture not ind Ur Microscopic Review Not Reportable Urine Culture Comments Culture not ind Assessment and Plan - Assessment (1) Alcohol withdrawal Code(s): F10.239 - Alcohol dependence with withdrawal, unspecified Status: Acute (2) NIKUNJ (acute kidney injury) Code(s): N17.9 - Acute kidney failure, unspecified Status: Acute (3) Hypocalcemia Code(s): E83.51 - Hypocalcemia Status: Acute - Plan Alcohol Withdrawal, S/P delirium tremens h/o Alcohol Abuse, tx from [facility] for acute AMS, sent w/ Philip Act, + active withdrawal. Initially in Intensive Care Unit, CIWA protocol, Seizure Precautions, MVT/ Thiamine/Folate replacement. Continue treatment for Wernicke's encephalopathy. Continue IV thiamine 500 mg 3 times daily, started 05/20. We will reduce IV thiamine to 250 mg daily 4 more days, ending 05/28/2018 Wernicke's encephalopathy continue management, lactulose increased to three times a day. Continue treatment with IV thiamine as above. Continue PT/OT/ST. Continue PO Seroquel for agitation. Ammonia level slightly elevated but not high enough to cause this level of mental impairment Neurology agrees with Warneke's encephalopathy Appreciate neurology consult Hypertensive Urgency Continue amlodipine 10 mg daily, Clonidine 0.2 mg TID, added HCTZ 12.5 mg. Stress related. Improved. Thrombocytopenia Follow with occasional CBC, improving Occasional hypoxemia Pt had a desaturation event overnight 05/20, not distressed. Consider sleep apnea DVT Prophylaxis Heparin (1) Alcohol withdrawal Qualifiers: Complication of substance-induced condition: with delirium Qualified Code(s) : F10.231 - Alcohol dependence with withdrawal delirium
--- NOTE | 2018-05-24 14:08 | MR ---
EXAM DATE: 05/24/2018 2:01 PM EDT AGE/SEX: 63 years / Male INDICATIONS: Confusion. CLINICAL DATA: This is the patient's initial encounter. Patient reports that signs and symptoms have been present for 1 day and indicates a pain score of 0/10. MEDICAL/SURGICAL HISTORY: Hepatitis C. None. COMPARISON: [facility] [place] HEAD W/O CONTRAST, 05/09/2018. . TECHNIQUE: Multiplanar, multisequence examination of the brain was performed without and with 7 ml Ga davist (gadobutrol) contrast as a single exam dose. FINDINGS: No evidence for acute infarction on diffusion-weighted imaging. There is no hemorrhage, or mass. Mild increased FLAIR signal in the bilateral centrum semiovale and periventricular white matter most like ly related to chronic microvascular ischemic disease. There is diffuse atrophy. Remote right parietal infarct. CONCLUSION: 1. Atrophy and white matter disease. Electronically signed by: James King MD 05/24/2018 2:06 PM EDT
[2018-05-24] MEDS ORDERED: Gadobutrol PF 7.5 MMOL/7.5 ML Vial (for RAD) IV.SIG ONE (15:26)
[2018-05-25] MEDS: Heparin - SQ 10,000 UNITS/ML Vial SQ SCH ×3 (06:06→21:02)
[2018-05-25] MEDS: Senna/Docusate Sodium 8.6/50 MG Tablet PO SCH ×2 (09:04→21:02)
[2018-05-25] MEDS: amLODIPine 5 MG Tablet PO SCH (09:04)
[2018-05-25] MEDS: QUEtiapine 25 MG Tablet PO SCH ×2 (09:04→21:02)
[2018-05-25] MEDS: guaiFENesin 600 MG ER Tablet PO SCH ×2 (09:04→21:01)
[2018-05-25] MEDS: SODIUM CHLOR 0.9% IV.SIG SCH (09:05)
[2018-05-25] MEDS: THIAMINE IV.SIG SCH (09:05)
--- NOTE | 2018-05-25 17:35 | P.PNIM ---
Subjective Interval history: Patient has shown no improvement in his mental capacity since yesterday. He is pleasant and conversive, but has a lot of mixed in confusion. Physical Exam Vital signs: Vital Signs 05/24/18 20:00 05/25/18 00:00 05/25/18 04:00 Temperature 98.1 F 98 F 97.6 F Pulse Rate 108 H 106 H 85 Respiratory Rate 17 17 17 Blood Pressure 140/81 143/89 H 145/86 H Pulse Oximetry 19 L 98 94 L 05/25/18 04:05 05/25/18 08:00 05/25/18 09:46 Temperature 97.1 F L Pulse Rate 80 68 Respiratory Rate 17 Blood Pressure 120/70 Pulse Oximetry 98 95 05/25/18 12:00 05/25/18 16:00 Temperature 97.5 F L Pulse Rate 89 97 H Respiratory Rate 17 Blood Pressure 113/75 Pulse Oximetry 95 Intake & Output 05/24/18 05/25/18 05/25/18 18:59 06:59 18:59 Intake Total 255 / 255 420 / 420 252.5 / 252.5 Balance 255 / 255 420 / 420 252.5 / 252.5 Weight 71.1 kg Intake: IV 255 / 255 252.5 / 252.5 Thiamine Inj 250 MG In NS Inj 255 / 255 252.5 / 252.5 250 ML @ 62.5 mls/hr IV.SIG DAILY SUSAN Rx#:[id number] Oral 420 / 420 Other: # Voids 1 3 Narrative: GENERAL: Awake, pleasant, but disoriented, no acute distress SKIN: Warm and dry. Circular rings on right face with central clearing, tinea HEAD: Atruamtic, normocephalic. EYES: No scleral icterus. No injection or drainage. ENT: Moist mucous membranes, patent nares, no erythema of oropharynx. NECK: Supple, trachea midline. No JVD or lymphadenopathy. Normal thyroid. CARDIOVASCULAR: Borderline sinus tachycardia. No murmurs, gallops, or rubs. RESPIRATORY: Breath sounds clear equal bilaterally. No crackles or wheezes. No accessory muscle use. GASTROINTESTINAL: Abdomen soft, non-tender, nondistended, normal active bowel sounds MUSCULOSKELETAL: No cyanosis, or edema. NEURO: CN II-XII grossly intact, no focal deficits, no slurring of speech Results - Labs CBC & Chem 7: 05/22/18 04:41 05/23/18 06:56 Assessment and Plan - Assessment (1) Alcohol withdrawal Code(s): F10.239 - Alcohol dependence with withdrawal, unspecified Status: Acute (2) NIKUNJ (acute kidney injury) Code(s): N17.9 - Acute kidney failure, unspecified Status: Acute (3) Hypocalcemia Code(s): E83.51 - Hypocalcemia Status: Acute - Plan Alcohol Withdrawal, S/P delirium tremens h/o Alcohol Abuse, tx from [facility] for acute AMS, sent w/ Philip Act, + active withdrawal. Initially in Intensive Care Unit, CIWA protocol, Seizure Precautions, MVT/ Thiamine/Folate replacement. Continue treatment for Wernicke's encephalopathy. Continue IV thiamine 500 mg 3 times daily, started 05/20. We will reduce IV thiamine to 250 mg daily 4 more days, ending 05/28/2018 Wernicke's encephalopathy continue management, lactulose increased to three times a day. Continue treatment with IV thiamine as above. Continue PT/OT/ST. Continue PO Seroquel for agitation. Ammonia level slightly elevated but not high enough to cause this level of mental impairment Neurology agrees with Warneke's encephalopathy Appreciate neurology consult Tinea infection Circular and C-shaped lesions on right face and forehead Apply Lotrimin cream twice daily Hypertensive Urgency Continue amlodipine 10 mg daily, Clonidine 0.2 mg TID, added HCTZ 12.5 mg. Stress related. Improved. Thrombocytopenia Follow with occasional CBC, improving Occasional hypoxemia Pt had a desaturation event overnight 05/20, not distressed. Consider sleep apnea DVT Prophylaxis Heparin (1) Alcohol withdrawal Qualifiers: Complication of substance-induced condition: with delirium Qualified Code(s) : F10.231 - Alcohol dependence with withdrawal delirium
[2018-05-25] MEDS: Clotrimazole 1% Cream 15 GM Tube TOPICAL SCH (21:08)
[2018-05-26] MEDS: Heparin - SQ 10,000 UNITS/ML Vial SQ SCH ×3 (05:53→22:41)
[2018-05-26] MEDS: guaiFENesin 600 MG ER Tablet PO SCH ×2 (08:18→20:37)
[2018-05-26] MEDS: Senna/Docusate Sodium 8.6/50 MG Tablet PO SCH ×2 (08:18→20:37)
[2018-05-26] MEDS: Clotrimazole 1% Cream 15 GM Tube TOPICAL SCH ×2 (08:19→20:37)
[2018-05-26] MEDS: QUEtiapine 25 MG Tablet PO SCH ×2 (08:19→20:37)
[2018-05-26] MEDS: SODIUM CHLOR 0.9% IV.SIG SCH (08:19)
[2018-05-26] MEDS: amLODIPine 5 MG Tablet PO SCH (08:19)
[2018-05-26] MEDS: THIAMINE IV.SIG SCH (08:19)
--- NOTE | 2018-05-26 17:10 | P.PNIM ---
Subjective Interval history: Patient was not cooperative with staff today, pulled out of his restraints and threatened to leave. He calmed down after receiving Ativan. Physical Exam Vital signs: Vital Signs 05/25/18 20:00 05/25/18 20:06 05/25/18 23:59 Temperature 97.7 F Pulse Rate 128 H 116 H 96 H Respiratory Rate 21 Blood Pressure 168/88 H Pulse Oximetry 93 L 05/26/18 00:00 05/26/18 04:00 05/26/18 04:23 Temperature 97.3 F L 97.3 F L Pulse Rate 100 H 85 80 Respiratory Rate 21 18 Blood Pressure 143/83 H 126/82 Pulse Oximetry 92 L 93 L 05/26/18 08:00 05/26/18 12:00 05/26/18 14:26 Temperature 97.6 F 97.3 F L Pulse Rate 81 79 Respiratory Rate 20 20 Blood Pressure 134/91 H 130/85 Pulse Oximetry 93 L 93 L 93 L Intake & Output 05/25/18 05/26/18 05/26/18 18:59 06:59 18:59 Intake Total 732.5 / 732.5 120 / 120 252.5 / 252.5 Balance 732.5 / 732.5 120 / 120 252.5 / 252.5 Weight 71 kg Intake: IV 252.5 / 252.5 252.5 / 252.5 Thiamine Inj 250 MG In NS Inj 252.5 / 252.5 252.5 / 252.5 250 ML @ 62.5 mls/hr IV.SIG DAILY SUSAN Rx#:[id number] Oral 480 / 480 120 / 120 Other: # Voids 4 # Incontinent Voids 1 # Bowel Movements 0 Narrative: GENERAL: Awake, pleasant, but disoriented, no acute distress SKIN: Warm and dry. Circular rings on right face with central clearing, tinea HEAD: Atruamtic, normocephalic. EYES: No scleral icterus. No injection or drainage. ENT: Moist mucous membranes, patent nares, no erythema of oropharynx. NECK: Supple, trachea midline. No JVD or lymphadenopathy. Normal thyroid. CARDIOVASCULAR: Borderline sinus tachycardia. No murmurs, gallops, or rubs. RESPIRATORY: Breath sounds clear equal bilaterally. No crackles or wheezes. No accessory muscle use. GASTROINTESTINAL: Abdomen soft, non-tender, nondistended, normal active bowel sounds MUSCULOSKELETAL: No cyanosis, or edema. NEURO: CN II-XII grossly intact, no focal deficits, no slurring of speech Results - Labs CBC & Chem 7: 05/22/18 04:41 05/23/18 06:56 Assessment and Plan - Assessment (1) Alcohol withdrawal Code(s): F10.239 - Alcohol dependence with withdrawal, unspecified Status: Acute (2) NIKUNJ (acute kidney injury) Code(s): N17.9 - Acute kidney failure, unspecified Status: Acute (3) Hypocalcemia Code(s): E83.51 - Hypocalcemia Status: Acute - Plan Alcohol Withdrawal, S/P delirium tremens h/o Alcohol Abuse, tx from [facility] for acute AMS, sent w/ Philip Act, + active withdrawal. Initially in Intensive Care Unit, [facility]FRED[facility] protocol, Seizure Precautions, MVT/ Thiamine/Folate replacement. Continue treatment for Wernicke's encephalopathy. Continue IV thiamine 500 mg 3 times daily, started 05/20. We will reduce IV thiamine to 250 mg daily 4 more days, ending 05/28/2018 Wernicke's encephalopathy, confusion continue management, lactulose increased to three times a day. Continue treatment with IV thiamine as above. Continue PT/OT/ST. Continue PO Seroquel for agitation. Ammonia level slightly elevated but not likely high enough to cause this level of mental impairment Neurology agrees with Warneke's encephalopathy Appreciate neurology consult Adding RPR her level to AM labs Tinea infection Circular and C-shaped lesions on right face and forehead Apply Lotrimin cream twice daily Hypertensive Urgency Continue amlodipine 10 mg daily, Clonidine 0.2 mg TID, added HCTZ 12.5 mg. Stress related. Improved. Thrombocytopenia Follow with occasional CBC, improving Occasional hypoxemia Pt had a desaturation event overnight 05/20, not distressed. Consider sleep apnea DVT Prophylaxis Heparin (1) Alcohol withdrawal Qualifiers: Complication of substance-induced condition: with delirium Qualified Code(s) : F10.231 - Alcohol dependence with withdrawal delirium
[2018-05-27 05:06] VITALS: PULSE 67
[2018-05-27] MEDS: Heparin - SQ 10,000 UNITS/ML Vial SQ SCH (06:06)
[2018-05-27] MEDS: guaiFENesin 600 MG ER Tablet PO SCH (08:44)
[2018-05-27] MEDS: amLODIPine 5 MG Tablet PO SCH (08:44)
[2018-05-27] MEDS: THIAMINE IV.SIG SCH (08:45)
[2018-05-27] MEDS: Senna/Docusate Sodium 8.6/50 MG Tablet PO SCH (08:45)
[2018-05-27] MEDS: QUEtiapine 25 MG Tablet PO SCH (08:45)
[2018-05-27] MEDS: Clotrimazole 1% Cream 15 GM Tube TOPICAL SCH (08:45)
[2018-05-27] MEDS: SODIUM CHLOR 0.9% IV.SIG SCH (08:45)
[2018-05-27 08:50] VITALS: BP 137/74; RESP 16; TEMP 97.9
[2018-05-27 09:13] LABS: Hematocrit 37.4 % (39.0-51.0); Hemoglobin 12.4 gm/dL (13.0-17.0); Mean Corpuscular HGB Conc 33.3 % (32.0-36.0); Mean Corpuscular Hemoglobin 31.8 pg (27.0-34.0); Mean Corpuscular Volume 95.4 fL (80.0-100.0); Mean Platelet Volume 6.6 fL (7.0-11.0); Platelet Count 502 th/mm3 (150-450); Red Blood Count 3.91 mil/mm3 (4.50-5.90); Red Cell Distribution Width 14.9 % (11.6-17.2)
[2018-05-27 09:33] LABS: Anion Gap 12 meq/L (5-15); Blood Urea Nitrogen 10 mg/dL (7-18); Calcium 9.1 mg/dL (8.5-10.1); Carbon Dioxide 25.4 meq/L (21.0-32.0); Chloride 99 meq/L (98-107); Glomerular Filtration Rate Greater Than 89 mL/min (>89); Glucose,Random 105 mg/dL (74-106); Potassium 3.7 meq/L (3.5-5.1); Sodium 136 meq/L (136-145)
[2018-05-27 10:13] VITALS: O2SAT 93
[2018-05-27 11:47] LABS: Magnesium 1.7 mg/dL (1.5-2.5); Phosphorus 4.7 mg/dL (2.5-4.9)
[2018-05-27 11:56] LABS: Thyroid Stimulating Hormone 1.04 uIU/mL (0.358-3.740)
--- NOTE | 2018-05-27 13:04 | P.PNIM ---
Subjective Interval history: Patient again pulled out of his restraints and threatened to leave his daughter came in actually signed him AGAINST MEDICAL ADVICE and took him home after my exam. Before my charting Patient was able to be seen but note is done after seeing him and she has already taken him AMA Physical Exam Vital signs: Vital Signs 05/26/18 14:26 05/26/18 16:00 05/26/18 17:26 Temperature 97.1 F L Pulse Rate 110 H Respiratory Rate 20 Blood Pressure 142/79 H Pulse Oximetry 93 L 94 L 94 L 05/26/18 20:00 05/27/18 00:00 05/27/18 04:00 Temperature 98.3 F 97.3 F L 97.4 F L Pulse Rate 113 H 68 67 Respiratory Rate 20 18 18 Blood Pressure 128/78 110/86 112/68 Pulse Oximetry 94 L 98 92 L 05/27/18 08:00 05/27/18 10:12 Temperature 97.9 F Pulse Rate Respiratory Rate 16 Blood Pressure 137/74 Pulse Oximetry 94 L 93 L Intake & Output 05/26/18 05/27/18 05/27/18 18:59 06:59 18:59 Intake Total 252.5 / 252.5 0 / 0 Output Total 250 / 250 0 / 0 Balance 2.5 / 2.5 0 / 0 Weight 69.4 kg Intake: IV 252.5 / 252.5 Thiamine Inj 250 MG In NS Inj 252.5 / 252.5 250 ML @ 62.5 mls/hr IV.SIG DAILY SUSAN Rx#:[id number] Oral 0 / 0 Output: Urine 250 / 250 0 / 0 Other: Date of Last Bowel Movement 05/18/18 Narrative: GENERAL: Awake, pleasant, but disoriented, no acute distress SKIN: Warm and dry. Circular rings on right face with central clearing, tinea HEAD: Atruamtic, normocephalic. EYES: No scleral icterus. No injection or drainage. ENT: Moist mucous membranes, patent nares, no erythema of oropharynx. NECK: Supple, trachea midline. No JVD or lymphadenopathy. Normal thyroid. CARDIOVASCULAR: Borderline sinus tachycardia. No murmurs, gallops, or rubs. RESPIRATORY: Breath sounds clear equal bilaterally. No crackles or wheezes. No accessory muscle use. GASTROINTESTINAL: Abdomen soft, non-tender, nondistended, normal active bowel sounds MUSCULOSKELETAL: No cyanosis, or edema. NEURO: CN II-XII grossly intact, no focal deficits, no slurring of speech Results - Labs CBC & Chem 7: 05/27/18 08:40 05/27/18 08:40 Laboratory Results - last 24 hr 05/27/18 05/27/18 05/27/18 08:40 08:40 08:40 WBC 12.0 H RBC 3.91 L Hgb 12.4 L Hct 37.4 L MCV 95.4 MCH 31.8 MCHC 33.3 RDW 14.9 Plt Count 502 H MPV 6.6 L Sodium 136 Potassium 3.7 Chloride 99 Carbon Dioxide 25.4 Anion Gap 12 BUN 10 Creatinine 0.70 Estimated GFR Greater than 89 Random Glucose 105 Calcium 9.1 Phosphorus Magnesium Ammonia Less than 10 L TSH Free T4 05/27/18 05/27/18 08:40 08:40 WBC RBC Hgb Hct MCV MCH MCHC RDW Plt Count MPV Sodium Potassium Chloride Carbon Dioxide Anion Gap BUN Creatinine Estimated GFR Random Glucose Calcium Phosphorus 4.7 Magnesium 1.7 Ammonia TSH 1.040 Free T4 1.08 - Imaging Chest X-Ray 05/09/18 00:50 CONCLUSION: No acute abnormality is seen. Head CT 05/09/18 00:50 CONCLUSION: 1. No acute abnormality is seen. 2. Atrophy. . Chest X-Ray 05/20/18 14:21 CONCLUSION: Mid and lower left lung consolidation or atelectasis. Head MRI 05/24/18 00:00 CONCLUSION: 1. Atrophy and white matter disease. - Procedures NONE Assessment and Plan - Assessment (1) Alcohol withdrawal Code(s): F10.239 - Alcohol dependence with withdrawal, unspecified Status: Acute (2) NIKUNJ (acute kidney injury) Code(s): N17.9 - Acute kidney failure, unspecified Status: Acute (3) Hypocalcemia Code(s): E83.51 - Hypocalcemia Status: Acute - Plan Alcohol Withdrawal, S/P delirium tremens h/o Alcohol Abuse, tx from [facility] for acute AMS, sent w/ Philip Act, + active withdrawal. Initially in Intensive Care Unit, CIWA protocol, Seizure Precautions, MVT/ Thiamine/Folate replacement. Continue treatment for Wernicke's encephalopathy. Continue IV thiamine 500 mg 3 times daily, started 05/20. We will reduce IV thiamine to 250 mg daily 4 more days, ending 05/28/2018 Wernicke's encephalopathy, confusion continue management, lactulose increased to three times a day. Continue treatment with IV thiamine as above. Continue PT/OT/ST. Continue PO Seroquel for agitation. Ammonia level slightly elevated but not likely high enough to cause this level of mental impairment Neurology agrees with Warneke's encephalopathy Appreciate neurology consult Adding RPR her level to AM labs Tinea infection Circular and C-shaped lesions on right face and forehead Apply Lotrimin cream twice daily Hypertensive Urgency Continue amlodipine 10 mg daily, Clonidine 0.2 mg TID, added HCTZ 12.5 mg. Stress related. Improved. Thrombocytopenia Follow with occasional CBC, improving Occasional hypoxemia Pt had a desaturation event overnight 05/20, not distressed. Consider sleep apnea DVT Prophylaxis Heparin Family came to see him after he had been seen by me this morning and daughter decided to take him AGAINST MEDICAL ADVICE today We will do AMA paperwork also Daughter signed AGAINST MEDICAL ADVICE and took the patient States she will have private duty nurses at home Code Status: Full code Discussed Condition With: RN and patient and case management Discharge Planning: Was not cleared for discharge but daughter decided to take him AGAINST MEDICAL ADVICE (1) Alcohol withdrawal Qualifiers: Complication of substance-induced condition: with delirium Qualified Code(s) : F10.231 - Alcohol dependence with withdrawal delirium
--- NOTE | 2018-05-27 13:06 | P.AMA ---
AMA Note - AMA Note Recommended Treatment Course: Follow-up with his primary care physician Stop alcohol AMMikaela Statement: Patient Julio Esteves has decided to leave the hospital against medical advice. This patient has the capacity to refuse care and understands the risks of leaving, including permanent disability and/or , and has had an opportunity to ask questions about his/her condition. The patient has been informed that he/she may return for care at any time, and follow up has been arranged/advised. - AMA Note Discharge Disposition: Left Against Medical Advice Patient Condition on Discharge: Stable
--- NOTE | 2018-05-27 13:09 | P.DS ---
Date of admission: 05/09/18 02:59 Primary care physician: UNKNOWN Attending physician on discharge: Glen Alejandra Anticipated date of discharge: 05/27/18 Brief History from admission: This is a 63-year-old male with a PMH of Hepatitis C, HTN and Alcohol Abuse was transferred from [facility] for AMS. Unable to obtain any history from patient due to mental status. On arrival, patient significantly combative requiring restraints, in obvious withdrawal. BP 168/81, HR 95, O2 sat 99% on RA , Temp 99. WBC normal. Platelets 70, previously 336 on 09/08/2017. INR 1.1. Creatinine 1.56, previously 0.67 on 09/08/2017. Calcium 6.8. CPK 571. Troponin negative. Tylenol negative, alcohol negative. CT Head with no acute findings. CXR normal. Patient update on day of discharge: Patient's daughter came in and decided to take him AGAINST MEDICAL ADVICE today after being seen by me DS: Diagnosis - Discharge Diagnosis (1) NIKUNJ (acute kidney injury) Status: Acute (2) Alcohol withdrawal Status: Acute (3) Alcoholic delirium Status: Acute (4) Hypocalcemia Status: Acute DS: Summary Hospital Course: This is a 63-year-old male with a PMH of Hepatitis C, HTN and Alcohol Abuse was transferred from [facility] for AMS. Unable to obtain any history from patient due to mental status. On arrival, patient significantly combative requiring restraints, in obvious withdrawal. BP 168/81, HR 95, O2 sat 99% on RA , Temp 99. WBC normal. Platelets 70, previously 336 on 09/08/2017. INR 1.1. Creatinine 1.56, previously 0.67 on 09/08/2017. Calcium 6.8. CPK 571. Troponin negative. Tylenol negative, alcohol negative. CT Head with no acute findings. CXR normal. Patient had been cleared from Philip act by psychiatry Was very disoriented. Family decided to take an AGAINST MEDICAL ADVICE today his daughter came in he left AGAINST MEDICAL ADVICE today after being seen by me - Time Spent with Patient Total time spent providing and/or coordinating discharge services: Less than 30 minutes Exam Vital signs: Vital Signs 05/26/18 14:26 05/26/18 16:00 05/26/18 17:26 Temperature 97.1 F L Pulse Rate 110 H Respiratory Rate 20 Blood Pressure 142/79 H Pulse Oximetry 93 L 94 L 94 L 05/26/18 20:00 05/27/18 00:00 05/27/18 04:00 Temperature 98.3 F 97.3 F L 97.4 F L Pulse Rate 113 H 68 67 Respiratory Rate 20 18 18 Blood Pressure 128/78 110/86 112/68 Pulse Oximetry 94 L 98 92 L 05/27/18 08:00 05/27/18 10:12 Temperature 97.9 F Pulse Rate Respiratory Rate 16 Blood Pressure 137/74 Pulse Oximetry 94 L 93 L Intake & Output 05/26/18 05/27/18 05/27/18 18:59 06:59 18:59 Intake Total 252.5 / 252.5 0 / 0 Output Total 250 / 250 0 / 0 Balance 2.5 / 2.5 0 / 0 Weight 69.4 kg Intake: IV 252.5 / 252.5 Thiamine Inj 250 MG In NS Inj 252.5 / 252.5 250 ML @ 62.5 mls/hr IV.SIG DAILY [facility] Rx#:[id number] Oral 0 / 0 Output: Urine 250 / 250 0 / 0 Other: Date of Last Bowel Movement 05/18/18 Narrative: GENERAL: Awake, pleasant, but disoriented, no acute distress SKIN: Warm and dry. Circular rings on right face with central clearing, tinea HEAD: Atruamtic, normocephalic. EYES: No scleral icterus. No injection or drainage. ENT: Moist mucous membranes, patent nares, no erythema of oropharynx. NECK: Supple, trachea midline. No JVD or lymphadenopathy. Normal thyroid. CARDIOVASCULAR: Borderline sinus tachycardia. No murmurs, gallops, or rubs. RESPIRATORY: Breath sounds clear equal bilaterally. No crackles or wheezes. No accessory muscle use. GASTROINTESTINAL: Abdomen soft, non-tender, nondistended, normal active bowel sounds MUSCULOSKELETAL: No cyanosis, or edema. NEURO: CN II-XII grossly intact, no focal deficits, no slurring of speech Results Procedures completed during hospitalization: NONE Completed studies during hospitalization: Laboratory Results WBC 12.0 th/mm3 (4.0-11.0) H 05/27/18 08:40 RBC 3.91 mil/mm3 (4.50-5.90) L 05/27/18 08:40 Hgb 12.4 gm/dL (13.0-17.0) L 05/27/18 08:40 Hct 37.4 % (39.0-51.0) L 05/27/18 08:40 MCV 95.4 fL (80.0-100.0) 05/27/18 08:40 MCH 31.8 pg (27.0-34.0) 05/27/18 08:40 MCHC 33.3 % (32.0-36.0) 05/27/18 08:40 RDW 14.9 % (11.6-17.2) 05/27/18 08:40 Plt Count 502 th/mm3 (150-450) H 05/27/18 08:40 MPV 6.6 fL (7.0-11.0) L 05/27/18 08:40 Prelim Diff (Auto) Slide review pending 05/10/18 03:31 Neut % (Auto) 83.8 % (16.0-70.0) H 05/22/18 04:41 Lymph % (Auto) 5.0 % (9.0-44.0) L 05/22/18 04:41 [place] % (Auto) 10.5 % (0.0-8.0) H 05/22/18 04:41 Eos % (Auto) 0.4 % (0.0-4.0) 05/22/18 04:41 Baso % (Auto) 0.3 % (0.0-2.0) 05/22/18 04:41 Neut # (Auto) 15.7 th/mm3 (1.8-7.7) H 05/22/18 04:41 Lymph # (Auto) 0.9 th/mm3 (1.0-4.8) L 05/22/18 04:41 [place] # (Auto) 2.0 th/mm3 (0.0-0.9) H 05/22/18 04:41 Eos # (Auto) 0.1 th/mm3 (0.0-0.4) 05/22/18 04:41 Baso # (Auto) 0.1 th/mm3 (0.0-0.2) 05/22/18 04:41 WBC Differential . 05/22/18 04:41 Diff Scan Auto diff confirmed 05/10/18 03:31 Differential Comment Auto diff final 05/22/18 04:41 Platelet Estimate Low (Normal) L 05/10/18 03:31 Platelet Morphology Normal (Normal) 05/10/18 03:31 PT 10.9 sec (9.8-11.6) 05/09/18 01:07 INR 1.1 Ratio 05/09/18 01:07 APTT 28.3 sec (24.3-30.1) 05/09/18 01:07 Sodium 136 meq/L (136-145) 05/27/18 08:40 Potassium 3.7 meq/L (3.5-5.1) 05/27/18 08:40 Chloride 99 meq/L (98-107) 05/27/18 08:40 Carbon Dioxide 25.4 meq/L (21.0-32.0) 05/27/18 08:40 Anion Gap 12 meq/L (5-15) 05/27/18 08:40 BUN 10 mg/dL (7-18) 05/27/18 08:40 Creatinine 0.70 mg/dL (0.60-1.30) 05/27/18 08:40 Estimated GFR Greater than 89 mL/min (>89) 05/27/18 08:40 POC Glucose 169 mg/dl (68-110) H 05/21/18 19:39 Random Glucose 105 mg/dL (74-106) 05/27/18 08:40 Calcium 9.1 mg/dL (8.5-10.1) 05/27/18 08:40 Prot Corrected Calcium 8.1 mg/dL (8.5-10.1) L 05/14/18 12:00 Phosphorus 4.7 mg/dL (2.5-4.9) 05/27/18 08:40 Magnesium 1.7 mg/dL (1.5-2.5) 05/27/18 08:40 Total Bilirubin 0.7 mg/dL (0.2-1.0) 05/10/18 03:31 AST 70 U/L (15-37) H 05/10/18 03:31 ALT 28 U/L (12-78) 05/10/18 03:31 Alkaline Phosphatase 63 U/L (45-117) 05/10/18 03:31 Ammonia Less than 10 mcmol/L (11-32) L 05/27/18 08:40 Total Creatine Kinase 571 U/L (39-308) H 05/09/18 01:07 CK-MB (CK-2) 7.4 ng/mL (0.5-3.6) H 05/09/18 01:07 CK-MB (CK-2) % 1.3 % (0.0-4.0) 05/09/18 01:07 Troponin I Less than 0.02 ng/mL (0.02-0.05) L 05/09/18 01:07 Total Protein 5.9 g/dL (6.4-8.2) L 05/14/18 12:00 Albumin 2.7 g/dL (3.4-5.0) L 05/10/18 03:31 Vitamin B12 Greater than 2000 pg/mL (193-986) H 05/21/18 17:04 Vitamin D 25-Hydroxy 10.9 ng/mL (30-100) L 05/21/18 17:04 TSH 1.040 uIU/mL (0.358-3.740) 05/27/18 08:40 Free T4 1.08 ng/dL (0.76-1.46) 05/27/18 08:40 Urine Color Yellow (Yellw/Straw) 05/23/18 08:40 Urine Clarity Clear (Clear) 05/23/18 08:40 Urine pH 5.0 (5.0-8.5) 05/23/18 08:40 Ur Specific [place] 1.013 (1.002-1.035) 05/23/18 08:40 Urine Protein 100 mg/dL (Neg-Trace) H 05/23/18 08:40 Urine Glucose (UA) Negative mg/dL (Negative) 05/23/18 08:40 Urine Ketones Negative mg/dL (Negative) 05/23/18 08:40 Urine Occult Blood Small (Negative) H 05/23/18 08:40 Urine Nitrate Negative (Negative) 05/23/18 08:40 Urine Bilirubin Negative (Negative) 05/23/18 08:40 Urine Urobilinogen Less than 2 mg/dL (Less than 2) 05/23/18 08:40 Ur Leukocyte Esterase Negative (Negative) 05/23/18 08:40 Urine RBC 4 /hpf (0-3) H 05/23/18 08:40 Urine WBC 1 /hpf (0-5) 05/23/18 08:40 Amorphous Sediment Moderate /hpf (None) H 05/09/18 05:55 Urine Bacteria Rare /hpf (None) H 05/09/18 05:55 Hyaline Casts 3 /lpf (0-3) 05/23/18 08:40 Urine Mucus Few /lpf (Occasional) H 05/23/18 08:40 Micro UA Comment Culture not ind 05/23/18 08:40 Ur Microscopic Review Not Reportable 05/23/18 08:40 Urine Culture Comments Culture not ind 05/23/18 08:40 Nasal Screen MRSA (PCR) Not detected (Negative) 05/09/18 18:10 Salicylates 6.2 mg/dL (2.8-20.0) 05/09/18 01:07 Urine Opiates Screen Neg (Neg) 05/09/18 05:55 Acetaminophen Less than 2.0 mcg/mL (10.0-30.0) L 05/09/18 01:07 Ur Barbiturates Screen Neg (Neg) 05/09/18 05:55 Ur Amphetamines Screen Neg (Neg) 05/09/18 05:55 U Benzodiazepines Scrn Pos (Neg) H 05/09/18 05:55 Urine Cocaine Screen Neg (Neg) 05/09/18 05:55 U Cannabinoids Screen Neg (Neg) 05/09/18 05:55 Serum Alcohol Less than 3 mg/dL (0-5) 05/09/18 01:[address] 05/09/18 00:50 CONCLUSION: 1. No acute abnormality is seen. 2. Atrophy. . Chest X-Ray 05/20/18 14:21 CONCLUSION: Mid and lower left lung consolidation or atelectasis. Head MRI 05/24/18 00:00 CONCLUSION: 1. Atrophy and white matter disease. Labs on day of discharge: Labs from last 24 hours 05/27/18 05/27/18 05/27/18 08:40 08:40 08:40 WBC RBC Hgb Hct MCV MCH MCHC RDW Plt Count MPV Sodium Potassium Chloride Carbon Dioxide Anion Gap BUN Creatinine Estimated GFR Random Glucose Hemoglobin A1c Pending Calcium Phosphorus 4.7 Magnesium 1.7 Ammonia TSH 1.040 Free T4 1.08 RPR 05/27/18 05/27/18 05/27/18 08:40 08:40 08:40 WBC RBC Hgb Hct MCV MCH MCHC RDW Plt Count MPV Sodium 136 Potassium 3.7 Chloride 99 Carbon Dioxide 25.4 Anion Gap 12 BUN 10 Creatinine 0.70 Estimated GFR Greater than 89 Random Glucose 105 Hemoglobin A1c Calcium 9.1 Phosphorus Magnesium Ammonia Less than 10 L TSH Free T4 RPR Pending 05/27/18 08:40 WBC 12.0 H RBC 3.91 L Hgb 12.4 L Hct 37.4 L MCV 95.4 MCH 31.8 MCHC 33.3 RDW 14.9 Plt Count 502 H MPV 6.6 L Sodium Potassium Chloride Carbon Dioxide Anion Gap BUN Creatinine Estimated GFR Random Glucose Hemoglobin A1c Calcium Phosphorus Magnesium Ammonia TSH Free T4 RPR - Impressions ITS Impressions Head CT 05/09/18 00:50 CONCLUSION: 1. No acute abnormality is seen. 2. Atrophy. . Chest X-Ray 05/20/18 14:21 CONCLUSION: Mid and lower left lung consolidation or atelectasis. Head MRI 05/24/18 00:00 CONCLUSION: 1. Atrophy and white matter disease. Discharge Plan - Discharge Disposition Patient Disposition: 07 Left Against Medical Advice - Discharge Condition Condition: Stable - Discharge Order Discharge Orders: AMA Discharge (Routine); Ordered 05/27/18 Ordered By: Glen Alejandra Discharge Order (Routine); Ordered 05/27/18 Ordered By: Glen Alejandra - Discharge Details Anticipated Discharge Date: 05/27/18 Discharge Comment: Patient left AGAINST MEDICAL ADVICE-AMA - Physicians Team Primary Care Provider: UNKNOWN, Attending Provider: Glen Alejandra Other Providers: Matheus Polanco MD ; Guero Rice [facility],[place] ; Juan Manuel Aggarwal MD, PhD
[2018-05-27 15:36] LABS: Hemoglobin A1c 5.3 % (4.3-6.0)
== END 2018-05-27 12:23 | disposition left against medical advice (07) ==
LOC: NEPE 00:14 → NEDA 02:59 → NEDH 08:03 → HIMC 17:40 → N04 05-18 19:25
PROVIDERS: ADMIT Hospitalist; ATTEND Hospitalist